=== PATIENT | female | born 1950 | race African-American/Black ===

== ENCOUNTER 2017-06-18 10:10 | Emergency (ER) | payer OTHER ==
[~2017-06-18] VITALS: Ht 160 cm; Wt 53.0 kg
[~2017-06-18 10:10] MED LIST: AMBI10TA PO; ASPI1TAB69 PO; BRIL90TA PO; CARV3.12 PO; FURO40TA PO; LISI10TA3 PO; SIMV20TA PO; WALKER WHEELS/F1 MIS
[2017-06-18 10:14] VITALS: BP 120/77; PULSE 84; RESP 20; TEMP 97.8; O2SAT 97
[2017-06-18] MEDS ORDERED: ATOR40TA16 PO (10:28)
[2017-06-18] MEDS ORDERED: ASPI81CH37 CHEW (10:28)
--- NOTE | 2017-06-18 10:42 | PD ---
HPI . Pedal edema Chief Complaint: Edema Time Seen by Provider: 10:27 Travel History International Travel<30 days: No Contact w/Intl Traveler<30days: No Traveled to known affect area: No History of Present Illness HPI Patient presents with the chief complaint of bilateral pedal edema. Onset was about 2 days ago. Symptoms have been persistent. She reports mild dyspnea on exertion. She denies chest pain. She reports compliance with her diuretic. She does not know the etiology of the increased swelling. PFSH Past Medical History Asthma: No Blood Disorders: No Anxiety: No Depression: No Heart Rhythm Problems: No Cancer: No Cardiovascular Problems: Yes (PACEMAKER AICD 03/2015) High Cholesterol: Yes Chest Pain: Yes Congestive Heart Failure: Yes COPD: No Cerebrovascular Accident: No Diminished Hearing: No Endocrine: No Gastrointestinal Disorders: No Genitourinary: No Headaches: No Hypertension: Yes Immune Disorder: No Implanted Vascular Access Dvce: No Musculoskeletal: No Neurologic: No Psychiatric: No Reproductive: No Respiratory: No Migraines: No Seizures: No Sleep Apnea: No Tetanus Vaccination: Unknown PNEUMOCCOCAL Vaccine (Year): 2 ?: Not Menopausal: Yes Para: 2 Tubal Ligation: Yes Past Surgical History Cardiac Surgery: Yes (PACEMAKER 03/2015) Gynecologic Surgery: Yes Other Surgery: Yes Social History Alcohol Use: Yes (BEER DAILY) Tobacco Use: No Substance Use: No Allergies-Medications (Allergen,Severity, Reaction): Coded Allergies: No Known Allergies (Verified , 06/18/17) Reported Meds & Prescriptions Reported Meds & Active Scripts Active Furosemide 40 Mg Tab 40 Mg PO DAILY Reported Atorvastatin (Atorvastatin Calcium) 40 Mg Tab 40 Mg PO HS Aspirin Low Dose (Aspirin) 81 Mg Chew 81 Mg CHEW DAILY Lisinopril 10 Mg Tab 10 Mg PO DAILY Carvedilol 3.125 Mg Tab 3.125 Mg PO BID Review of Systems Except as stated in HPI: all other systems reviewed are Neg General / Constitutional: No: Fever, Chills Cardiovascular: No: Chest Pain or Discomfort Respiratory: Positive: Shortness of Breath Gastrointestinal: No: Nausea, Vomiting, Diarrhea Musculoskeletal: Positive: Edema, No: Pain Physical Exam Narrative GENERAL: Awake and alert and in no acute distress. SKIN: Warm and dry. HEAD: Atraumatic. Normocephalic. EYES: Pupils equal and round. Extraocular movements are intact. ENT: No nasal bleeding or discharge. Mucous membranes pink and moist. NECK: Trachea midline. Neck is supple. CARDIOVASCULAR: Regular rate and rhythm. Holosystolic murmur. RESPIRATORY: No accessory muscle use. Lungs sound clear with good air movement throughout. GASTROINTESTINAL: Abdomen soft, non-tender, nondistended. MUSCULOSKELETAL: No obvious deformities. 2+ pretibial pitting edema. NEUROLOGICAL: Awake and alert. No obvious cranial nerve deficits. Motor grossly within normal limits. Normal speech. PSYCHIATRIC: Appropriate mood and affect; insight and judgment normal. Data Data Last Documented VS Vital Signs Date Time Temp Pulse Resp B/P Pulse Ox O2 Delivery O2 Flow Rate FiO2 06/18/17 12:08 65 17 134/90 96 Room Air 06/18/17 10:14 97.8 Orders Complete Blood Count With Diff (06/18/17 10:38) Basic Metabolic Panel (Bmp) (06/18/17 10:38) B-Type Natriuretic Peptide (06/18/17 10:38) Iv Access Insert/Monitor (06/18/17 10:38) Electrocardiogram (06/18/17 10:38) Ecg Monitoring (06/18/17 10:38) Oximetry (06/18/17 10:38) Chest, Single Ap (06/18/17 10:38) Sodium Chloride 0.9% Flush (Ns Flush) (06/18/17 10:45) Furosemide Inj (Lasix Inj) (06/18/17 10:45) Labs Laboratory Tests Test 06/18/17 10:50 White Blood Count 4.4 TH/MM3 Red Blood Count 4.41 MIL/MM3 Hemoglobin 12.4 GM/DL Hematocrit 36.8 % Mean Corpuscular Volume 83.6 FL Mean Corpuscular Hemoglobin 28.1 PG Mean Corpuscular Hemoglobin 33.7 % Concent Red Cell Distribution Width 19.0 % Platelet Count 131 TH/MM3 Mean Platelet Volume 11.4 FL Neutrophils (%) (Auto) 75.3 % Lymphocytes (%) (Auto) 15.1 % Monocytes (%) (Auto) 8.2 % Eosinophils (%) (Auto) 0.8 % Basophils (%) (Auto) 0.6 % Neutrophils # (Auto) 3.3 TH/MM3 Lymphocytes # (Auto) 0.7 TH/MM3 Monocytes # (Auto) 0.4 TH/MM3 Eosinophils # (Auto) 0.0 TH/MM3 Basophils # (Auto) 0.0 TH/MM3 CBC Comment DIFF FINAL Differential Comment Sodium Level 133 MEQ/L Potassium Level 4.0 MEQ/L Chloride Level 101 MEQ/L Carbon Dioxide Level 20.2 MEQ/L Anion Gap 12 MEQ/L Blood Urea Nitrogen 16 MG/DL Creatinine 0.90 MG/DL Estimat Glomerular Filtration 76 ML/MIN Rate Random Glucose 104 MG/DL Calcium Level 8.3 MG/DL B-Type Natriuretic Peptide GREATER THAN 5000 PG/ML MDM Medical Decision Making Medical Screen Exam Complete: Yes Emergency Medical Condition: Yes Medical Record Reviewed: Yes (past medical history is significant for hypertension, congestive heart failure with a last known ejection fraction of 25 % on 08/06/15, AICD, chronic renal insufficiency) Interpretation(s) EKG shows a paced rhythm. Differential Diagnosis Differential diagnosis of dyspnea includes but is not limited to congestive heart failure, pneumonia, wheezing, pneumothorax, pulmonary embolism Narrative Course This patient presents with the chief complaint of pedal edema with some mild dyspnea on exertion. She will be evaluated for CHF. She'll be given a dose of Lasix, 40 mg IV. Last Impressions Chest X-Ray 06/18/17 1038 Signed Impressions: Service Date/Time: Sunday, June 18, 2017 10:55 - CONCLUSION: Cardiomegaly. Clear lungs. Fredy Crespo Jr., MD The chest x-ray was independently viewed by me. CBC & BMP Diagram 06/18/17 10:50 BNP>5000. Her BNP has been this elevated before. She is not in pulmonary edema. She will be discharged home. Diagnosis Primary Impression: Leg edema Patient Instructions: General Instructions, Leg Edema (ED) Additional Instructions: See your doctor if the swelling persists. Keep your legs elevated as much as possible. You might consider wearing compressive stockings. Disposition: 01 DISCHARGE HOME Condition: Stable Linda Green MD Jun 18, 2017 10:42
[2017-06-18 10:44] VITALS: O2SAT 98
[2017-06-18] MEDS ORDERED: SODIUM CHLORIDE 0.9% FLUSH 10 ML FLUSH IVF PRN (10:45)
[2017-06-18] MEDS ORDERED: FUROSEMIDE 40 MG/4 ML VIAL IVP ONE (10:45)
--- NOTE | 2017-06-18 11:11 | RADRPT ---
EXAM DATE/TIME: 06/18/2017 10:55 [facility] COMPARISON: CHEST SINGLE AP, October 20, 2016, 17:47. INDICATIONS : Short of breath, swollen lower extremities. MEDICAL HISTORY : Congestive heart failure. Myocardial infarction. SURGICAL HISTORY : Pacemaker. ENCOUNTER: Initial ACUITY: 2 days PAIN SCORE: 0/10 LOCATION: Bilateral chest FINDINGS: A single portable frontal view the chest shows significant cardiomegaly. No pulmonary vascular engorg ement observed. Pacing device overlies the left chest. Lungs are clear. No infiltrates or effusions. Bony structures are unremarkable. CONCLUSION: Cardiomegaly. Clear lungs. Fredy Crespo Jr., MD on June 18, 2017 at 11:09 Board Certified Radiologist. This report was verified electronically.
[2017-06-18 11:28] LABS: AUTOMATED NEUTROPHIL # 3.3 TH/MM3 (1.8-7.7); BASOPHIL % 0.6 % (0.0-2.0); EOSINOPHIL % 0.8 % (0.0-4.0); HEMATOCRIT 36.8 % (35.0-46.0); HEMO FLAGS DIFF FINAL; LYMPH % 15.1 % (9.0-44.0); LYMPHOCYTE # 0.7 TH/MM3 (1.0-4.8); MEAN CELL VOLUME 83.6 FL (80.0-100.0); MEAN CORPUSCULAR HEMOGLOBIN 28.1 PG (27.0-34.0); MEAN CORPUSCULAR HGB CONC 33.7 % (32.0-36.0); MONO % 8.2 % (0.0-8.0); NEUT % 75.3 % (16.0-70.0); PLATELET COUNT 131 TH/MM3 (150-450); RED BLOOD COUNT 4.41 MIL/MM3 (4.00-5.30); WHITE BLOOD COUNT 4.4 TH/MM3 (4.0-11.0)
[2017-06-18 11:30] LABS: BICARBONATE 20.2 MEQ/L (21.0-32.0)
[2017-06-18 12:08] VITALS: BP 134/90; PULSE 65; RESP 17; O2SAT 96
--- NOTE | 2017-06-19 14:01 | EKG ---
Date Performed: 06/18/2017 Time Performed: 10:50:16 PTAGE: 66 years EKG: Normal Sinus rhythm with P wave synchronis ventricular pacing Fusion complexes noted Left atrial abnormality Pacing is n ew compared to the prior tracing ABNORMAL RHYTHM ECG PREVIOUS TRACING : 10/23/2016 11.06 DOCTOR: Levi Solis Interpretating Date/Time 06/19/2017 14:00:51
== END 2017-06-18 13:22 | disposition home or self-care (01) ==
LOC: NEPD 10:10
DX: R60.9 Edema, unspecified (principal); R06.02 Shortness of breath; I50.9 Heart failure, unspecified; I12.9 Hypertensive chronic kidney disease with stage 1 through stage 4 chronic kidney disease, or unspecified chronic kidney disease; N18.9 Chronic kidney disease, unspecified; E78.00 Pure hypercholesterolemia, unspecified; Z79.82 Long term (current) use of aspirin; Z79.899 Other long term (current) drug therapy
CPT/HCPCS: 71010; 80048; 83880; 85025; 93005; 96374; 99285; J1940

== ENCOUNTER 2018-01-17 12:01 | Day surgery (SDC) | payer MEDICARE, MEDICAID ==
[~2018-01-17 12:01] MED LIST changes: -AMBI10TA PO; +AMIO200T PO; -ASPI1TAB69 PO; +ASPI81CH6 CHEW; +ATOR40TA16 PO; -BRIL90TA PO; +BUME1TAB PO; -CARV3.12 PO; -FURO40TA PO; -LISI10TA3 PO; +MILRINJ2; +NITR1SUB3 SL; +SILD20TA11 PO; -SIMV20TA PO; -WALKER WHEELS/F1 MIS
[2018-01-17 12:31] VITALS: BP 116/71; PULSE 90; RESP 20; TEMP 98.5; O2SAT 99
[2018-01-17 13:40] VITALS: BP 118/74; PULSE 82; RESP 20; TEMP 98.4; O2SAT 97
[2018-01-17] MEDS ORDERED: MILRINJ2 (14:15)
--- NOTE | 2018-01-17 14:16 | RADRPT ---
EXAM DATE/TIME: 01/17/2018 14:30 [facility] COMPARISON: No previous studies available for comparison. INDICATIONS : Patient with a existing dual picc line that wont draw back. MEDICAL HISTORY : 1.Chronic systolic heart failure 2. HTN 3. heart failure 4. CAD SURGICAL HISTORY : 1. Pacemaker ENCOUNTER: Initial ACUITY: 2 months PAIN SCORE: 0/10 FLUORO TIME: 0.4 minutes IMAGE SERIES: 1 ACCESS: Right basilic vein DEVICE(S): 1.) 5 [place] dual lumen 30 cm Xcela Power PICC PROCEDURE : 1. Fluoroscopic guidance. 2. Fluoroscopic guided central venous Power PICC line replacement. The risks, benefits and alternatives to the procedure were explained and verbal and written consent w as obtained. The arm was prepped in sterile fashion. Full sterile technique was used, including cap , mask, sterile gloves and gown and a large sterile sheet. Hand hygiene and 2% chlorhexidine prep wa s utilized per protocol for cutaneous antisepsis with appropriate dry time for site. The skin and hernandez bcutaneous tissues were infiltrated with local anesthetic solution. Under direct fluoroscopic guidance the previously placed PICC line was removed over a guidewire and a fresh Power Injectable PICC line was cut to prescribed length and positioned with tip at the cavoatr ial junction level. The line was flushed and secured per protocol. CONCLUSION: 1. Uncomplicated central venous Power PICC line replacement. 2. The PICC line can be used immediately. Fredy Crespo Jr., MD on January 17, 2018 at 14:13 Board Certified Radiologist. This report was verified electronically.
[2018-01-17] MEDS ORDERED: SODIUM CHLORIDE 0.9% FLUSH 10 ML FLUSH IVF PRN ×2 (15:15)
--- NOTE | 2018-01-17 15:17 | PD.RAD ---
Radiology Post PICC Prog Note Pre Procedure Diagnosis: (1) Wound check, abscess Post Procedure Diagnosis: (1) Wound check, abscess Procedure: Right PICC line replacement Procedure Date: Jan 17, 2018 Supervising Radiologist Fredy Crespo JR Proceduralist/Assist: Jing Conn, RT(R)() Device Side: Right Setswana: 5 dual lumen cm: 30 Plan of Activity PICC line can be used immediately Jr. Zak,Fredy Betancourt MD Jan 17, 2018 15:17
[2018-01-18] MEDS ORDERED: SODIUM CHLORIDE 0.9% FLUSH 10 ML FLUSH IVF SCH (09:00)
== END 2018-01-17 14:05 | disposition home or self-care (01) ==
LOC: HROP 12:01 → HRIP 12:05 → HROP 14:05
PROVIDERS: ATTEND Internal Medicine Cardiovascular Disease
DX: Z45.2 Encounter for adjustment and management of vascular access device (principal); I50.22 Chronic systolic (congestive) heart failure; I11.0 Hypertensive heart disease with heart failure; I25.10 Atherosclerotic heart disease of native coronary artery without angina pectoris; Z95.0 Presence of cardiac pacemaker
CPT/HCPCS: 36584; 77001; C1751; J1642

== ENCOUNTER 2018-04-11 15:24 | Inpatient (IN) | payer MEDICARE, MEDICAID ==
[~2018-04-11] VITALS: Ht 152.4 cm; Wt 48.4 kg
[~2018-04-11 15:24] MED LIST changes: -ASPI81CH6 CHEW; +ASPI81CH6 PO; +HEPARIN SODIUM - SQ 10,000 UNITS/ML VIAL SQ SCH
[2018-04-11 15:28] VITALS: BP 122/58; PULSE 84; RESP 20; TEMP 97.7; O2SAT 100
--- NOTE | 2018-04-11 18:08 | PD ---
HPI Chief Complaint: Edema Time Seen by Provider: 17:59 Travel History International Travel<30 days: No Contact w/Intl Traveler<30days: No Traveled to known affect area: No History of Present Illness HPI 67-year-old female with history of significant CAD, with CHF, AICD placement, and a Mildarone infusion via right upper extremity PICC line, presents emergency department for evaluation of bilateral lower extremity edema, worsening shortness of breath over the last week and 1/2-2 weeks. Patient states she feels as though she is filling up with fluid in her abdomen is also distended. Denies any urinary or bowel changes. Denies any fever chills. No cough or congestion. 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 Kilpatrick. She saw his nurse who advised she come to the emergency department. Patient has no other symptoms to report at this time. PFSH Past Medical History Asthma: No Blood Disorders: No Anxiety: No Depression: No Heart Rhythm Problems: No Cancer: No Cardiovascular Problems: Yes High Cholesterol: No Chest Pain: No Congestive Heart Failure: Yes COPD: No Cerebrovascular Accident: No Diminished Hearing: No Endocrine: No Gastrointestinal Disorders: No Genitourinary: No Headaches: No Hypertension: Yes Immune Disorder: No Implanted Vascular Access Dvce: No Musculoskeletal: No Neurologic: No Psychiatric: No Reproductive: No Respiratory: Yes Migraines: No Seizures: No Sleep Apnea: No PNEUMOCCOCAL Vaccine (Year): 2 Menopausal: Yes Para: 2 Tubal Ligation: Yes Past Surgical History Cardiac Surgery: Yes (PACEMAKER 03/2015) Gynecologic Surgery: Yes (HYSTERECTOMY) Other Surgery: Yes Social History Alcohol Use: Yes (BEER DAILY) Tobacco Use: No Substance Use: No Allergies-Medications (Allergen,Severity, Reaction): Coded Allergies: No Known Allergies (Verified Allergy, Unknown, 01/17/18) Reported Meds & Prescriptions Reported Meds & Active Scripts Active Reported Metolazone 2.5 Mg Tab 2.5 Mg PO WEEKLY Milrinone in Dextrose 20 mg/100Ml (Milrinone in Dextrose) 20 Mg/100 Ml (200 Mcg/ Ml) Inj EVERY 48 HOURS Amiodarone (Amiodarone HCl) 200 Mg Tab 200 Mg PO DAILY Sildenafil 20 Mg Tab 10 Tab PO TID Nitroglycerin SL (Nitroglycerin) 0.4 Mg Subl 0.4 Mg SL DIRECTED PRN ONE TABLET UNDER THE TONGUE NEEDED FOR CHEST PAIN, MAY REPEAT EVERY FIVE MINUTES FOR A TOTAL OF 3 DOSES OR CALL 911 IF NO RELIEF Bumetanide 1 Mg Tab 1 Mg PO DAILY Aspirin Low Dose (Aspirin) 81 Mg Chew 81 Mg PO DAILY Review of Systems Except as stated in HPI: all other systems reviewed are Neg Physical Exam Narrative GENERAL: Well-nourished female patient, ambulatory with cane assistance but in no acute distress SKIN: Focused skin assessment warm/dry. HEAD: Atraumatic. Normocephalic. EYES: Pupils equal and round. No scleral icterus. No injection or drainage. ENT: No nasal bleeding or discharge. Mucous membranes pink and moist. NECK: Trachea midline. No JVD. CARDIOVASCULAR: Regular rate and rhythm. 2/6 systolic murmur appreciated. RESPIRATORY: No accessory muscle use. Diminished throughout to auscultation. Breath sounds equal bilaterally. GASTROINTESTINAL: Abdomen soft, nontender, slightly distended. Hepatic and splenic margins not palpable. MUSCULOSKELETAL: No obvious deformities. No clubbing. No cyanosis. 2+ bilateral lower extremity edema. Right upper extremity PICC line in place. Dressing is intact. No erythema, edema, or drainage. NEUROLOGICAL: Awake and alert. No obvious cranial nerve deficits. Motor grossly within normal limits. Normal speech. PSYCHIATRIC: Appropriate mood and affect; insight and judgment normal. Data Data Last Documented VS Vital Signs Date Time Temp Pulse Resp B/P (MAP) Pulse Ox O2 Delivery O2 Flow Rate FiO2 04/11/18 19:26 80 18 130/74 (92) 98 Room Air 04/11/18 15:28 97.7 Orders Orders Complete Blood Count With Diff (04/11/18 15:30) Basic Metabolic Panel (Bmp) (04/11/18 15:30) B-Type Natriuretic Peptide (04/11/18 15:30) Act Partial Throm Time (Ptt) (04/11/18 18:07) Prothrombin Time / Inr (Pt) (04/11/18 18:07) Ckmb (Isoenzyme) Profile (04/11/18 18:) Troponin I (04/11/18 18:) Urinalysis - C+S If Indicated (04/11/18 18:) Iv Access Insert/Monitor (04/11/18 18:07) Ecg Monitoring (04/11/18 18:) Oximetry (04/11/18 18:07) Oxygen Administration (04/11/18 18:07) Sodium Chloride 0.9% Flush (Ns Flush) (04/11/18 18:15) Electrocardiogram (04/11/18 ) Us Abdomen Lower Limited (04/11/18 ) CKMB (04/11/18 18:21) CKMB% (04/11/18 18:21) Chest, Single Ap (04/11/18 ) Labs Laboratory Tests Test 04/11/18 18:21 04/11/18 18:48 White Blood Count 4.7 TH/MM3 Red Blood Count 4.28 MIL/MM3 Hemoglobin 8.6 GM/DL Hematocrit 27.8 % Mean Corpuscular Volume 65.0 FL Mean Corpuscular Hemoglobin 20.2 PG Mean Corpuscular Hemoglobin Concent 31.1 % Red Cell Distribution Width 20.3 % Platelet Count 333 TH/MM3 Mean Platelet Volume 7.8 FL Neutrophils (%) (Auto) 69.2 % Lymphocytes (%) (Auto) 21.7 % Monocytes (%) (Auto) 8.4 % Eosinophils (%) (Auto) 0.0 % Basophils (%) (Auto) 0.7 % Neutrophils # (Auto) 3.3 TH/MM3 Lymphocytes # (Auto) 1.0 TH/MM3 Monocytes # (Auto) 0.4 TH/MM3 Eosinophils # (Auto) 0.0 TH/MM3 Basophils # (Auto) 0.0 TH/MM3 CBC Comment DIFF FINAL Differential Comment Prothrombin Time 12.9 SEC Prothromb Time International Ratio 1.3 RATIO Activated Partial Thromboplast Time 28.0 SEC Blood Urea Nitrogen 33 MG/DL Creatinine 1.58 MG/DL Random Glucose 96 MG/DL Calcium Level 8.7 MG/DL Sodium Level 131 MEQ/L Potassium Level 4.7 MEQ/L Chloride Level 97 MEQ/L Carbon Dioxide Level 23.1 MEQ/L Anion Gap 11 MEQ/L Estimat Glomerular Filtration Rate 40 ML/MIN Total Creatine Kinase 212 U/L Creatine Kinase MB 7.1 NG/ML Creatine Kinase MB % 3.3 % Troponin I 0.02 NG/ML B-Type Natriuretic Peptide 2959 PG/ML Urine Color LIGHT-YELLOW Urine Turbidity CLEAR Urine pH 6.0 Urine Specific [place] 1.007 Urine Protein NEG mg/dL Urine Glucose (UA) NEG mg/dL Urine Ketones NEG mg/dL Urine Occult Blood NEG Urine Nitrite NEG Urine Bilirubin NEG Urine Urobilinogen LESS THAN 2.0 MG/DL Urine Leukocyte Esterase TRACE Urine RBC 1 /hpf Urine WBC LESS THAN 1 /hpf Urine Squamous Epithelial Cells 2 /hpf Microscopic Urinalysis Comment CULT NOT INDICATED MDM Medical Decision Making Medical Screen Exam Complete: Yes Emergency Medical Condition: Yes Medical Record Reviewed: Yes Differential Diagnosis CHF exacerbation versus electrolyte abnormality versus renal failure versus ascites Narrative Course 67-year-old female presents emergency department for evaluation of bilateral lower extremity edema and shortness of breath. Patient appears without distress. Her vital signs are stable. Workup is initiated. Laboratory Tests Test 04/11/18 18:21 04/11/18 18:48 White Blood Count 4.7 TH/MM3 Red Blood Count 4.28 MIL/MM3 Hemoglobin 8.6 GM/DL Hematocrit 27.8 % Mean Corpuscular Volume 65.0 FL Mean Corpuscular Hemoglobin 20.2 PG Mean Corpuscular Hemoglobin Concent 31.1 % Red Cell Distribution Width 20.3 % Platelet Count 333 TH/MM3 Mean Platelet Volume 7.8 FL Neutrophils (%) (Auto) 69.2 % Lymphocytes (%) (Auto) 21.7 % Monocytes (%) (Auto) 8.4 % Eosinophils (%) (Auto) 0.0 % Basophils (%) (Auto) 0.7 % Neutrophils # (Auto) 3.3 TH/MM3 Lymphocytes # (Auto) 1.0 TH/MM3 Monocytes # (Auto) 0.4 TH/MM3 Eosinophils # (Auto) 0.0 TH/MM3 Basophils # (Auto) 0.0 TH/MM3 CBC Comment DIFF FINAL Differential Comment Prothrombin Time 12.9 SEC Prothromb Time International Ratio 1.3 RATIO Activated Partial Thromboplast Time 28.0 SEC Blood Urea Nitrogen 33 MG/DL Creatinine 1.58 MG/DL Random Glucose 96 MG/DL Calcium Level 8.7 MG/DL Sodium Level 131 MEQ/L Potassium Level 4.7 MEQ/L Chloride Level 97 MEQ/L Carbon Dioxide Level 23.1 MEQ/L Anion Gap 11 MEQ/L Estimat Glomerular Filtration Rate 40 ML/MIN Total Creatine Kinase 212 U/L Creatine Kinase MB 7.1 NG/ML Creatine Kinase MB % 3.3 % Troponin I 0.02 NG/ML B-Type Natriuretic Peptide 2959 PG/ML Urine Color LIGHT-YELLOW Urine Turbidity CLEAR Urine pH 6.0 Urine Specific [place] 1.007 Urine Protein NEG mg/dL Urine Glucose (UA) NEG mg/dL Urine Ketones NEG mg/dL Urine Occult Blood NEG Urine Nitrite NEG Urine Bilirubin NEG Urine Urobilinogen LESS THAN 2.0 MG/DL Urine Leukocyte Esterase TRACE Urine RBC 1 /hpf Urine WBC LESS THAN 1 /hpf Urine Squamous Epithelial Cells 2 /hpf Microscopic Urinalysis Comment CULT NOT INDICATED Ultrasound of the abdomen shows mild ascites. Chest x-rays pending. Patient is given a small dose of Lasix here. She will be admitted observation for further evaluation and hopeful resolution/improvement of her symptoms. Diagnosis Primary Impression: Acute exacerbation of congestive heart failure Qualified Codes: I50.9 - Heart failure, unspecified Additional Impressions: Leg edema Orthopnea Admitting Information Admitting Physician Requests: Observation Condition: Stable Julissa Burch April 11, 2018 18:08
[2018-04-11 18:10] VITALS: BP 124/77; PULSE 88; PULSE 89; RESP 18; O2SAT 100; O2SAT 99
[2018-04-11] MEDS ORDERED: SODIUM CHLORIDE 0.9% FLUSH 10 ML FLUSH IVF PRN (18:15)
[2018-04-11] MEDS ORDERED: BUME1TAB PO (18:24)
[2018-04-11] MEDS ORDERED: METO2.5T PO (18:24)
[2018-04-11 19:15] LABS: BILIRUBIN, URINE NEG (NEG); BLOOD, URINE NEG (NEG); GLUCOSE,URINE NEG (NEG); KETONE, URINE NEG (NEG); NITRITE,URINE NEG (NEG); SQUAMOUS EPITHELIAL CELL URINE 2 /hpf (0-5); URINE COLOR LIGHT-YELLOW (YELLW/STRAW); URINE LEUKOCYTE ESTERASE TRACE (NEG)
[2018-04-11 19:20] LABS: BICARBONATE 23.1 MEQ/L (21.0-32.0); CALCIUM 8.7 MG/DL (8.5-10.1); CREATININE 1.58 MG/DL (0.50-1.00)
--- NOTE | 2018-04-11 19:20 | RADRPT ---
EXAM DATE/TIME: 04/11/2018 18:27 [facility] COMPARISON: No previous studies available for comparison. INDICATIONS : Ascities. MEDICAL HISTORY : Myocardial infarction. Hypertension. Glasses. Dyspnea. SURGICAL HISTORY : Pacemaker. Hysterectomy. Tubal ligation. ENCOUNTER: Initial ACUITY: 1 day PAIN SCORE: 2/10 LOCATION: Abdomen. AREA EVALUATED: Abdomen. FINDINGS: Imaging of the abdomen and pelvis was performed to evaluate for ascites for possible paracentesis. T here is a small amount of fluid seen in the peritoneal cavity. This is too small to drain. CONCLUSION: Mild ascites. Froilan Jiang MD on April 11, 2018 at 19:18 Board Certified Radiologist. This report was verified electronically.
[2018-04-11 19:26] VITALS: BP 130/74; PULSE 80; RESP 18; O2SAT 98
[2018-04-11 19:47] LABS: AUTOMATED NEUTROPHIL # 3.3 TH/MM3 (1.8-7.7); BASOPHIL % 0.7 % (0.0-2.0); HEMATOCRIT 27.8 % (35.0-46.0); HEMOGLOBIN 8.6 GM/DL (11.6-15.3); LYMPH % 21.7 % (9.0-44.0); MEAN CORPUSCULAR HEMOGLOBIN 20.2 PG (27.0-34.0); MEAN CORPUSCULAR HGB CONC 31.1 % (32.0-36.0); MEAN PLATELET VOLUME 7.8 FL (7.0-11.0); MONO % 8.4 % (0.0-8.0); MONOCYTE # 0.4 TH/MM3 (0-0.9); NEUT % 69.2 % (16.0-70.0); PLATELET COUNT 333 TH/MM3 (150-450); RED BLOOD COUNT 4.28 MIL/MM3 (4.00-5.30); RED CELL DISTRIBUTION WIDTH 20.3 % (11.6-17.2); WHITE BLOOD COUNT 4.7 TH/MM3 (4.0-11.0)
[2018-04-11 19:54] LABS: INTERNATIONAL NORMALIZED RATIO 1.3 RATIO; PROTHROMBIN TIME - PATIENT 12.9 SEC (9.8-11.6)
[2018-04-11 20:12] LABS: TROPONIN I 0.02 NG/ML (0.02-0.05)
[2018-04-11] MEDS ORDERED: FUROSEMIDE 20 MG/2 ML VIAL IV PUSH ONE (22:00)
--- NOTE | 2018-04-11 22:05 | RADRPT ---
EXAM DATE/TIME: 04/11/2018 20:41 [facility] COMPARISON: CHEST SINGLE AP, June 18, 2017, 10:55. INDICATIONS : Short of breath. MEDICAL HISTORY : Congestive heart failure. A-fib. SURGICAL HISTORY : Pacemaker. ENCOUNTER: Initial ACUITY: >1 year PAIN SCORE: 0/10 LOCATION: Bilateral chest FINDINGS: There is a multilead pacing device seen in place from the left subclavian approach. The heart size is enlarged. Lungs appear grossly clear. There is a PICC line in place from the right arm with the tip overlying the SVC. CONCLUSION: Cardiomegaly. Froilan Jiang MD on April 11, 2018 at 22:02 Board Certified Radiologist. This report was verified electronically.
[2018-04-11 23:33] VITALS: BP 122/71; PULSE 70; RESP 18; O2SAT 98
--- NOTE | 2018-04-11 23:41 | HHI.HP ---
[facility] [place] Primary [place] Physician Froilan Gerardo MD Admission Diagnosis CHF EXACERBATION Diagnoses: Travel History International Travel<30 Days: No Contact w/Intl Traveler <30 Da: No Traveled to Known Affected Are: No History of Present Illness 67-year-old female with past medical history significant for CHF (EF of 20-25% on 10/21/16), HTN and hyperlipidemia presents to the emergency department for the evaluation of lower extremity and abdominal edema. The patient reports that this has been going on for approximately the past 3 weeks. She states that she is compliant with all her medications but her edema persisted despite this. She describes her shortness of breath with exertion that is baseline for her. She has a PICC line in place in the right arm for administration of milrinone. The patient denies any chest pain. She denies abdominal pain. No fever/chills. No nausea/vomiting/diarrhea. No lateralizing signs/symptoms. Review of Systems Except as stated in HPI: all other systems reviewed are Neg Past Family Social History Past Medical History CHF (EF of 20-25% on 10/21/16), HTN and hyperlipidemia Past Surgical History AICD placement Patient reports previous cardiac procedures although she cannot provide details. States she was treated at [facility]. Reported Medications Reported Meds & Active Scripts Active Reported Metolazone 2.5 Mg Tab 2.5 Mg PO WEEKLY Milrinone in Dextrose 20 mg/100Ml (Milrinone in Dextrose) 20 Mg/100 Ml (200 Mcg/ Ml) Inj EVERY 48 HOURS Amiodarone (Amiodarone HCl) 200 Mg Tab 200 Mg PO DAILY Sildenafil 20 Mg Tab 10 Tab PO TID Nitroglycerin SL (Nitroglycerin) 0.4 Mg Subl 0.4 Mg SL DIRECTED PRN ONE TABLET UNDER THE TONGUE NEEDED FOR CHEST PAIN, MAY REPEAT EVERY FIVE MINUTES FOR A TOTAL OF 3 DOSES OR CALL 911 IF NO RELIEF Bumetanide 1 Mg Tab 1 Mg PO DAILY Aspirin Low Dose (Aspirin) 81 Mg Chew 81 Mg PO DAILY Allergies: Coded Allergies: No Known Allergies (Verified Allergy, Unknown, 01/17/18) Family History No family history of CAD or DM Social History Remote history of smoking. Drinks approximately 2 beers per day. Denies illicit drugs. Physical Exam Vital Signs Vital Signs Date Time Temp Pulse Resp B/P (MAP) Pulse Ox O2 Delivery O2 Flow Rate FiO2 04/11/18 23:33 70 18 122/71 (88) 98 Room Air 04/11/18 19:26 80 18 130/74 (92) 98 Room Air 04/11/18 18:10 99 Room Air 04/11/18 18:10 89 18 99 Room Air 04/11/18 18:10 88 18 99 Room Air 04/11/18 18:10 89 18 124/77 (93) 100 Room Air 04/11/18 15:28 97.7 84 20 122/58 (79) 100 Physical Exam GENERAL: -Lao female sitting up in bed SKIN: No rashes, ecchymoses or lesions. Cool and dry. HEAD: Atraumatic. Normocephalic. No temporal or scalp tenderness. EYES: Pupils equal round and reactive. Extraocular motions intact. No scleral icterus. No injection or drainage. ENT: Nose without bleeding, purulent drainage or septal hematoma. Throat without erythema, tonsillar hypertrophy or exudate. Uvula midline. Airway patent. NECK: Trachea midline. No JVD or lymphadenopathy. Supple, nontender, no meningeal signs. CARDIOVASCULAR: Regular rate and rhythm. 3/6 systolic ejection murmur. RESPIRATORY: Clear to auscultation. Breath sounds equal bilaterally. No wheezes , rales, or rhonchi. GASTROINTESTINAL: Abdomen soft, non-tender, positive distention. No hepato- splenomegaly, or palpable masses. No guarding. MUSCULOSKELETAL: 2+ pitting edema NEUROLOGICAL: Awake and alert. Cranial nerves II through XII intact. Motor and sensory grossly within normal limits. Normal speech. Laboratory Laboratory Tests Test 04/11/18 18:21 04/11/18 18:48 White Blood Count 4.7 Red Blood Count 4.28 Hemoglobin 8.6 Hematocrit 27.8 Mean Corpuscular Volume 65.0 Mean Corpuscular Hemoglobin 20.2 Mean Corpuscular Hemoglobin Concent 31.1 Red Cell Distribution Width 20.3 Platelet Count 333 Mean Platelet Volume 7.8 Neutrophils (%) (Auto) 69.2 Lymphocytes (%) (Auto) 21.7 Monocytes (%) (Auto) 8.4 Eosinophils (%) (Auto) 0.0 Basophils (%) (Auto) 0.7 Neutrophils # (Auto) 3.3 Lymphocytes # (Auto) 1.0 Monocytes # (Auto) 0.4 Eosinophils # (Auto) 0.0 Basophils # (Auto) 0.0 CBC Comment DIFF FINAL Differential Comment Prothrombin Time 12.9 Prothromb Time International Ratio 1.3 Activated Partial Thromboplast Time 28.0 Blood Urea Nitrogen 33 Creatinine 1.58 Random Glucose 96 Calcium Level 8.7 Sodium Level 131 Potassium Level 4.7 Chloride Level 97 Carbon Dioxide Level 23.1 Anion Gap 11 Estimat Glomerular Filtration Rate 40 Total Creatine Kinase 212 Creatine Kinase MB 7.1 Creatine Kinase MB % 3.3 Troponin I 0.02 B-Type Natriuretic Peptide 2959 Urine Color LIGHT-YELLOW Urine Turbidity CLEAR Urine pH 6.0 Urine Specific [place] 1.007 Urine Protein NEG Urine Glucose (UA) NEG Urine Ketones NEG Urine Occult Blood NEG Urine Nitrite NEG Urine Bilirubin NEG Urine Urobilinogen LESS THAN 2.0 Urine Leukocyte Esterase TRACE Urine RBC 1 Urine WBC LESS THAN 1 Urine Squamous Epithelial Cells 2 Microscopic Urinalysis Comment CULT NOT INDICATED Result Diagram: 04/11/18 18204/11/181820 Caprini VTE Risk Assessment Caprini VTE Risk Assessment: Mod/High Risk (score >= 2) Caprini Risk Assessment Model Point Value = 1 Point Value = 2 Point Value = 3 Point Value = 5 Age 41-60 Minor surgery BMI > 25 kg/m2 Swollen legs Varicose veins or History of unexplained or recurrent spontaneous Oral contraceptives or hormone replacement Sepsis (< 1 month) Serious lung disease, including pneumonia (< 1 month) Abnormal pulmonary function Acute myocardial infarction Congestive heart failure (< 1 month) History of inflammatory bowel disease Medical patient at bed rest Age 61-74 Arthroscopic surgery Major open surgery (> 45 min) Laparoscopic surgery (> 45 min) Malignancy Confined to bed (> 72 hours) Immobilizing plaster cast Central venous access Age >= 75 History of VTE Family history of VTE Factor V Leiden Prothrombin 51278A Lupus anticoagulant Anticardiolipin antibodies Elevated serum homocysteine Heparin-induced thrombocytopenia Other congenital or acquired thrombophilia Stroke (< 1 month) Elective arthroplasty Hip, pelvis, or leg fracture Acute spinal cord injury (< 1 month) Prophylaxis Regimen Total Risk Factor Score Risk Level Prophylaxis Regimen 0-1 Low Early ambulation 2 Moderate Order ONE of the following: *Sequential Compression Device (SCD) *Heparin 5000 units SQ BID 3-4 Higher Order ONE of the following medications: *Heparin 5000 units SQ TID *Enoxaparin/Lovenox 40 mg SQ daily (WT < 150 kg, CrCl > 30 mL/min) *Enoxaparin/Lovenox 30 mg SQ daily (WT < 150 kg, CrCl > 10-29 mL/min) *Enoxaparin/Lovenox 30 mg SQ BID (WT < 150 kg, CrCl > 30 mL/min) AND/OR *Sequential Compression Device (SCD) 5 or more Highest Order ONE of the following medications: *Heparin 5000 units SQ TID (Preferred with Epidurals) *Enoxaparin/Lovenox 40 mg SQ daily (WT < 150 kg, CrCl > 30 mL/min) *Enoxaparin/Lovenox 30 mg SQ daily (WT < 150 kg, CrCl > 10-29 mL/min) *Enoxaparin/Lovenox 30 mg SQ BID (WT < 150 kg, CrCl > 30 mL/min) AND *Sequential Compression Device (SCD) Assessment and Plan Assessment and Plan Assessment/plan: 1. CHF exacerbation BNP elevated IV Lasix Patient with PICC line in place for IV milrinone infusion, continue 2. Pulmonary arterial hypertension Continue sildenafil Patient with complex cardiac history and poor historian. Medical records requested from [facility]. FEN Heart healthy diet Electrolytes: Monitor and replete as needed Heparin Mercedez Kelly MD April 11, 2018 23:41
[2018-04-11] MEDS ORDERED: ONDANSETRON ODT 4 MG TAB PO PRN (23:45)
[2018-04-11] MEDS ORDERED: LACTULOSE SYRUP 20 GM/30 ML CUP PO PRN (23:45)
[2018-04-11] MEDS ORDERED: SENNOSIDES 8.6 MG TAB PO PRN (23:45)
[2018-04-11] MEDS ORDERED: NALOXONE HCL 0.4 MG/ML AMP IV PUSH PRN (23:45)
[2018-04-11] MEDS ORDERED: SODIUM CHLORIDE 0.9% FLUSH 10 ML FLUSH IV FLUSH PRN (23:45)
[2018-04-11] MEDS ORDERED: ACETAMINOPHEN 325 MG TAB PO PRN (23:45)
[2018-04-11] MEDS ORDERED: BISACODYL 10 MG SUPP RECTAL PRN (23:45)
[2018-04-11] MEDS ORDERED: MAGNESIUM HYDROXIDE SUSP 30 ML CUP PO PRN (23:45)
[2018-04-12] VITALS (7 sets, daily range): BP systolic 109–132; BP diastolic 55–77; PULSE 71–90; RESP 16–18; TEMP 96.3–98; O2SAT 95–100
[2018-04-12 06:14] LABS: HEMATOCRIT 26.6 % (35.0-46.0); HEMOGLOBIN 8.5 GM/DL (11.6-15.3); MEAN CELL VOLUME 64.8 FL (80.0-100.0); MEAN CORPUSCULAR HEMOGLOBIN 20.7 PG (27.0-34.0); MEAN CORPUSCULAR HGB CONC 31.9 % (32.0-36.0); MEAN PLATELET VOLUME 8.5 FL (7.0-11.0); PLATELET COUNT 312 TH/MM3 (150-450); RED BLOOD COUNT 4.11 MIL/MM3 (4.00-5.30); RED CELL DISTRIBUTION WIDTH 20.5 % (11.6-17.2); WHITE BLOOD COUNT 4.7 TH/MM3 (4.0-11.0)
[2018-04-12 06:34] LABS: BICARBONATE 22.8 MEQ/L (21.0-32.0); CALCIUM 8.6 MG/DL (8.5-10.1); CREATININE 1.57 MG/DL (0.50-1.00)
[2018-04-12] MEDS: DOCUSATE SODIUM 50 MG/SENNA 8.6 MG TAB PO SCH ×2 (08:32→21:00)
[2018-04-12] MEDS: FUROSEMIDE 40 MG/4 ML VIAL IV PUSH SCH ×2 (08:32→17:44)
[2018-04-12] MEDS: ASPIRIN 81 MG CHEW TAB PO SCH (08:32)
[2018-04-12] MEDS: SODIUM CHLORIDE 0.9% FLUSH 10 ML FLUSH IV FLUSH SCH ×2 (08:32→21:48)
[2018-04-12] MEDS: AMIODARONE 200 MG TAB PO SCH (08:32)
[2018-04-12 08:35] LABS: BASOPHILS 1 % (0-2); LYMPHOCYTES 18 % (9-44); MONOCYTES 4 % (0-8); NEUTROPHIL # MANUAL DIFF 3.6 TH/MM3 (1.8-7.7); POLYS (SEG NEUTROPHILS) 77 % (16-70)
[2018-04-12 08:36] LABS: OVALOCYTES 1+ (NORMAL); TARGET CELLS 2+ (NORMAL)
[2018-04-12] MEDS ORDERED: SILDENAFIL CITRATE 20 MG TAB PO SCH (09:00)
[2018-04-12] MEDS: SILDENAFIL CITRATE 20 MG TAB PO SCH ×3 (10:16→17:44)
--- NOTE | 2018-04-12 10:25 | HHI.PR ---
Subjective Remarks Follow up for CHF exacerbation. The patient reports continued leg swelling, not much improved overnight. Denies any chest pain. She denies shortness of breath at rest but does have some with exertion which is baseline for her. Denies any cough or congestion. Denies any changes in eating habits or increased fluid or salt intake. She reports compliance with medications. Denies any other medical complaints at this time. Her senior revenue accountant is Dr. Kilpatrick. She states she last visited [facility] back in 2015. Objective Vitals Vital Signs Date Time Temp Pulse Resp B/P (MAP) Pulse Ox O2 Delivery O2 Flow Rate FiO2 04/12/18 08:00 96.8 87 17 132/77 (95) 95 04/12/18 03:45 98.0 88 16 128/65 (86) 100 04/12/18 00:34 97.5 90 16 119/73 (88) 97 04/11/18 23:33 70 18 122/71 (88) 98 Room Air 04/11/18 19:26 80 18 130/74 (92) 98 Room Air 04/11/18 18:10 99 Room Air 04/11/18 18:10 89 18 99 Room Air 04/11/18 18:10 88 18 99 Room Air 04/11/18 18:10 89 18 124/77 (93) 100 Room Air 04/11/18 15:28 97.7 84 20 122/58 (79) 100 I/O 04/11/18 04/11/18 04/11/18 04/12/18 04/12/18 04/12/18 07:00 15:00 23:00 07:00 15:00 23:00 Intake Total 40 ml Balance 40 ml Intake Oral 40 ml # Voids 1 Result Diagram: 04/12/18 0532 04/12/18 0532 Imaging Last Impressions Chest X-Ray 04/11/18 0000 Signed Impressions: Service Date/Time: March 20:41 - CONCLUSION: Cardiomegaly. Froilan Jiang MD Abdomen Ultrasound 04/11/18 0000 Signed Impressions: Service Date/Time: March 18:27 - CONCLUSION: Mild ascites. Froilan Jiang MD Objective Remarks GENERAL: Well-nourished, well-developed pleasant female patient in [facility]. SKIN: Warm and dry. No rash. HEENT: Normocephalic. Atraumatic. Pupils equal and round. Mucous membranes pink and moist. CARDIOVASCULAR: Regular rate and rhythm. No murmur appreciated. RESPIRATORY: No accessory muscle use. Breath sounds diminished at bilateral bases, otherwise clear to auscultation. Breath sounds equal bilaterally. GASTROINTESTINAL: Abdomen soft, non-tender, nondistended. Normoactive bowel sounds x4. MUSCULOSKELETAL: No obvious deformities. 2+ bilateral lower extremity pitting edema. NEUROLOGICAL: Awake and alert. No obvious cranial nerve deficits. Motor grossly within normal limits. Moving all extremities spontaneously. Normal speech. PSYCHIATRIC: Appropriate mood and affect; insight and judgment normal. Medications and IVs Current Medications Medications (Trade) Dose Ordered Sig/Tripp Route Start Time Stop Time Status Last Admin (Cordarone) 200 mg DAILY PO 04/12/18 09:00 04/12/18 08:32 (Aspirin Chew) 81 mg DAILY PO 04/12/18 09:00 04/12/18 08:32 (Lasix Inj) 40 mg BID@ IV PUSH 04/12/18 09:00 04/12/18 08:32 (NS Flush) 2 ml UNSCH PRN IV FLUSH 04/11/18 23:45 (NS Flush) 2 ml BID IV FLUSH 04/12/18 09:00 04/12/18 08:32 (Tylenol) 650 mg Q4H PRN PO 04/11/18 23:45 (Zofran Odt) 4 mg Q6H PRN PO 04/11/18 23:45 (Narcan Inj) 0.4 mg UNSCH PRN IV PUSH 04/11/18 23:45 (Avelina-Colace) 1 tab BID PO 04/12/18 09:00 04/12/18 08:32 (Milk Of Magnesia Liq) 30 ml Q12H PRN PO 04/11/18 23:45 (Senokot) 17.2 mg Q12H PRN PO 04/11/18 23:45 (Dulcolax Supp) 10 mg DAILY PRN RECTAL 04/11/18 23:45 (Lactulose Liq) 30 ml DAILY PRN PO 04/11/18 23:45 (Heparin Inj) 5,000 units Q12H SQ 04/12/18 13:00 (Revatio) 10 mg TID PO 04/12/18 09:00 A/P Assessment and Plan 67-year-old female with history of CHF (EF of 20-25% on 10/21/16), HTN and hyperlipidemia presents to the emergency department for the evaluation of lower extremity and abdominal edema. Acute Systolic CHF Exacerbation: BNP elevated at 2959. CXR reviewed, shows cardiomegaly. Abdominal U/S with mild ascites. -Continue diuresis with IV Lasix 40mg bid -Patient with PICC line in place for IV milrinone infusion, will continue -Monitor Is&Os and daily weights -Consult patient's senior revenue accountant Dr. Kilpatrick -[id number]: Discussed with Dr. Goncalves, recommends metolazone 2.5mg tonight 30min prior to lasix, and consider increasing to metolazone 5mg tomorrow am prior to lasix depending on response today. Recommends daily BNP. Will not be followed by cardiology over the weekend but ok to discharge when acute CHF exacerbation resolved. Pulmonary arterial hypertension: chronic -Continue patient's sildenafil Patient with complex cardiac history and very poor historian. Medical records requested from [facility]. Continue home meds. DVT Prophylaxis: Heparin sq Cheryl Farah PA-C April 12, 2018 10:25 am
--- NOTE | 2018-04-12 12:26 | EKG ---
Date Performed: 04/11/2018 Time Performed: 18:29:01 PTAGE: 67 years EKG: Sinus rhythm with ventricular pacing PREVIOUS TRACING : 06/18/2017 10.50 Since the previous tracing, no significant change not ed DOCTOR: Ravi Rubi Interpretating Date/Time 04/12/2018 12:22:16
[2018-04-12] MEDS: HEPARIN SODIUM - SQ 10,000 UNITS/ML VIAL SQ SCH (13:44)
[2018-04-12] MEDS ORDERED: METOLAZONE 2.5 MG TAB PO ONE (17:30)
--- NOTE | 2018-04-12 17:46 | MB ---
cc: Natalie Goncalves MD, [place] MD DATE: 04/12/2018 HISTORY OF PRESENT ILLNESS: A 67-year-old black female, a patient of Dr. Kilpatrick, with a history of congestive heart failure, ejection fraction 20-25%, biventricular ICD placement, pulmonary hypertension and right bundle branch block, who presented with 3-week history of lower extremity edema and abdominal edema. She has been managed as outpatient with Bumex and metolazone, but has not been improving. She has not had any chest pain. She has minimal dyspnea. She has a PICC line in place for milrinone infusion. She was referred for heart transplant, but due to the lack of transportation, poor social support, frailty and cachexia she was rejected. PAST MEDICAL HISTORY: Positive for chronic systolic congestive heart failure, biventricular ICD Medtronic, pulmonary hypertension, AV fistula, tricuspid regurgitation, left bundle branch block, cardiomyopathy with severe left ventricular systolic dysfunction, malnutrition, hypertension, history of colonoscopy with polypectomy, radial catheterization at in 2015, Medtronic defibrillator in 2014. MEDICATIONS: 1. Milrinone IV, 2. Metolazone 2.5 mg weekly. 2. Amiodarone 200 mg a day. 3. Sildenafil 20 mg t.i.d. 4. Nitroglycerin p.r.n. 5. Bumex 1 mg daily. 6. Aspirin 81 mg a day. ALLERGIES: NONE. SOCIAL HISTORY: The patient has previous history of smoking, but does not smoke at this time. She drinks 2 beers a day. FAMILY HISTORY: Negative for heart disease. REVIEW OF SYSTEMS: Otherwise negative. PHYSICAL EXAMINATION: VITAL SIGNS: Blood pressure 114/73, pulse 87 and regular. HEENT: Negative. NECK: 2+ carotid upstrokes, no bruits. LUNGS: Clear. HEART: Regular with a 2-3/6 systolic murmur and an S3 gallop. ABDOMEN: Soft, no bruits. EXTREMITIES: 2+ pitting edema of the lower extremities and also abdominal distention, 1+ distal pulses. NEUROLOGIC: Grossly nonfocal. The patient is in no acute distress. CARDIOLOGY STUDIES: EKG was reviewed and showed sinus rhythm and biventricular pacing. LABORATORY DATA: Hemoglobin 8.5, potassium 3.8, creatinine 1.58 and 1.57. CK 212, troponin 0.02. BNP 2959. DIAGNOSES: 1. Acute exacerbation of chronic systolic congestive heart failure. 2. Cardiomyopathy with severe left ventricular systolic dysfunction. 3. Pulmonary artery hypertension. 4. Anemia. 5. Status post Medtronic biventricular ICD placement. 6. Arteriovenous fistula. 7. Chronic kidney disease. 8. Hypertension DISPOSITION: Ms. Lafleur will be monitored on telemetry. She will continue her milrinone IV infusion. We will continue diuresis with IV furosemide and also add low-dose metolazone, which can be titrated as needed. She has not had a significant response to diuresis at this time. I recommend to closely monitor her renal function and electrolytes. We will monitor her I's and O's, and daily weights. She will follow up with Dr. Kilpatrick, her primary manager program management, in his office after discharge. MD TAHMINA Hernandez/ , 04:45 PM , 05:44 PM TONI
[2018-04-13] VITALS (8 sets, daily range): BP systolic 100–132; BP diastolic 55–63; PULSE 66–88; RESP 16–17; TEMP 97.8–98.7; O2SAT 96–100
[2018-04-13] MEDS: HEPARIN SODIUM - SQ 10,000 UNITS/ML VIAL SQ SCH ×2 (01:11→18:18)
[2018-04-13 08:52] LABS: BICARBONATE 24.4 MEQ/L (21.0-32.0); CALCIUM 8.5 MG/DL (8.5-10.1); CREATININE 1.42 MG/DL (0.50-1.00)
[2018-04-13] MEDS: METOLAZONE 2.5 MG TAB PO SCH ×2 (09:00→12:26)
[2018-04-13] MEDS: SODIUM CHLORIDE 0.9% FLUSH 10 ML FLUSH IV FLUSH SCH ×2 (09:00→20:50)
--- NOTE | 2018-04-13 10:39 | HHI.PR ---
Subjective Remarks Follow up for CHF exacerbation. The patient reports mild improvement overnight however still with significant lower extremity edema and occasional shortness of breath. She does not feel ready for discharge. Denies chest pain or palpitations. Denies any other medical complaints at this time. Objective Vitals Vital Signs Date Time Temp Pulse Resp B/P (MAP) Pulse Ox O2 Delivery O2 Flow Rate FiO2 04/13/18 08:50 98.7 75 16 100/55 (70) 98 04/13/18 03:42 98.3 74 16 107/63 (78) 99 04/12/18 23:03 98.0 87 16 109/56 (73) 100 04/12/18 19:18 97.5 85 16 114/55 (74) 100 04/12/18 16:00 96.3 71 17 111/61 (78) 100 04/12/18 12:00 96.7 87 18 114/73 (87) 100 I/O 04/12/18 04/12/18 04/12/18 04/13/18 04/13/18 04/13/18 07:00 15:00 23:00 07:00 15:00 23:00 Intake Total 850 ml Output Total 1150 ml 800 ml Balance -300 ml -800 ml Intake Oral 850 ml Output Urine Total 1150 ml 800 ml # Voids 1 1 1 3 # Bowel Movements 1 1 Result Diagram: 04/12/18 0532 04/13/18 0747 Imaging Last Impressions Chest X-Ray 04/11/18 0000 Signed Impressions: Service Date/Time: March 20:41 - CONCLUSION: Cardiomegaly. Froilan Jiang MD Abdomen Ultrasound 04/11/18 0000 Signed Impressions: Service Date/Time: March 18:27 - CONCLUSION: Mild ascites. Froilan Jiang MD Objective Remarks GENERAL: Well-nourished, well-developed pleasant female patient in [facility]. SKIN: Warm and dry. No rash. HEENT: Normocephalic. Atraumatic. Pupils equal and round. Mucous membranes pink and moist. CARDIOVASCULAR: Regular rate and rhythm. 2/6 systolic murmur noted. RESPIRATORY: No accessory muscle use. Breath sounds diminished at bilateral bases, otherwise clear to auscultation. Breath sounds equal bilaterally. GASTROINTESTINAL: Abdomen soft, non-tender, nondistended. Normoactive bowel sounds x4. MUSCULOSKELETAL: No obvious deformities. 2+ bilateral lower extremity pitting edema, mildly improved compared to yesterday NEUROLOGICAL: Awake and alert. No obvious cranial nerve deficits. Motor grossly within normal limits. Moving all extremities spontaneously. Normal speech. PSYCHIATRIC: Appropriate mood and affect; insight and judgment normal. Procedures None. Medications and IVs Current Medications Medications (Trade) Dose Ordered Sig/Tripp Route Start Time Stop Time Status Last Admin (Cordarone) 200 mg DAILY PO 04/12/18 09:00 04/13/18 11:33 (Aspirin Chew) 81 mg DAILY PO 04/12/18 09:00 04/13/18 11:33 (Lasix Inj) 40 mg BID@ IV PUSH 04/12/18 09:00 04/13/18 11:34 (NS Flush) 2 ml UNSCH PRN IV FLUSH 04/11/18 23:45 (NS Flush) 2 ml BID IV FLUSH 04/12/18 09:00 04/13/18 09:00 (Tylenol) 650 mg Q4H PRN PO 04/11/18 23:45 (Zofran Odt) 4 mg Q6H PRN PO 04/11/18 23:45 (Narcan Inj) 0.4 mg UNSCH PRN IV PUSH 04/11/18 23:45 (Avelina-Colace) 1 tab BID PO 04/12/18 09:00 04/13/18 11:33 (Milk Of Magnesia Liq) 30 ml Q12H PRN PO 04/11/18 23:45 (Senokot) 17.2 mg Q12H PRN PO 04/11/18 23:45 (Dulcolax Supp) 10 mg DAILY PRN RECTAL 04/11/18 23:45 (Lactulose Liq) 30 ml DAILY PRN PO 04/11/18 23:45 (Heparin Inj) 5,000 units Q12H SQ 04/12/18 13:00 04/13/18 01:11 (Revatio) 10 mg TID PO 04/12/18 09:00 04/13/18 11:33 (Zaroxolyn) 2.5 mg DAILY PO 04/13/18 08:30 04/13/18 12:26 A/P Assessment and Plan 67-year-old female with history of CHF (EF of 20-25% on 10/21/16), HTN and hyperlipidemia presents to the emergency department for the evaluation of lower extremity and abdominal edema. Acute Systolic CHF Exacerbation: BNP elevated at 2959. CXR reviewed, shows cardiomegaly. Abdominal U/S with mild ascites. -Continue diuresis with IV Lasix 40mg bid -Patient with PICC line in place for IV milrinone infusion, will continue -Monitor Is&Os and daily weights -Consult patient's lockstitch waistline joiner Dr. Kilpatrick -Discussed with Dr. Goncalves, recommends metolazone 2.5mg to be given prior to lasix; Recommends daily BMP/BNP. Will not be followed by cardiology over the weekend but ok to discharge when acute CHF exacerbation resolved. -Patient improving however needs continued diuresis, possible discharge in 1- 2 days Pulmonary arterial hypertension: chronic -Continue patient's sildenafil Patient with complex cardiac history and very poor historian. Medical records requested from [facility]. Continue home meds. DVT Prophylaxis: Heparin sq Discharge Planning Not yet ready for discharge. Continue diuresis. Possible discharge in 1-2 days. Cheryl Farah PA-C April 13, 2018 10:39 am
[2018-04-13] MEDS: DOCUSATE SODIUM 50 MG/SENNA 8.6 MG TAB PO SCH ×2 (11:33→20:49)
[2018-04-13] MEDS: AMIODARONE 200 MG TAB PO SCH (11:33)
[2018-04-13] MEDS: ASPIRIN 81 MG CHEW TAB PO SCH (11:33)
[2018-04-13] MEDS: SILDENAFIL CITRATE 20 MG TAB PO SCH ×3 (11:33→18:18)
[2018-04-13] MEDS: FUROSEMIDE 40 MG/4 ML VIAL IV PUSH SCH ×2 (11:34→19:01)
[2018-04-14] VITALS: BP 107/59; PULSE 76; PULSE 80; RESP 17; TEMP 97.4; O2SAT 99
[2018-04-14] MEDS: HEPARIN SODIUM - SQ 10,000 UNITS/ML VIAL SQ SCH ×2 (00:46→13:34)
[2018-04-14 04:00] VITALS: BP 105/62; PULSE 71; PULSE 80; RESP 17; TEMP 97.3; O2SAT 99
[2018-04-14 08:00] VITALS: BP 104/56; PULSE 74; PULSE 77; RESP 19; TEMP 98; O2SAT 96
[2018-04-14] MEDS: SILDENAFIL CITRATE 20 MG TAB PO SCH ×3 (09:00→18:12)
[2018-04-14] MEDS: DOCUSATE SODIUM 50 MG/SENNA 8.6 MG TAB PO SCH ×2 (09:38→20:07)
[2018-04-14] MEDS: AMIODARONE 200 MG TAB PO SCH (09:38)
[2018-04-14] MEDS: METOLAZONE 2.5 MG TAB PO SCH ×2 (09:38→20:07)
[2018-04-14] MEDS: ASPIRIN 81 MG CHEW TAB PO SCH (09:38)
[2018-04-14] MEDS: SODIUM CHLORIDE 0.9% FLUSH 10 ML FLUSH IV FLUSH SCH ×2 (09:39→20:08)
[2018-04-14] MEDS: FUROSEMIDE 40 MG/4 ML VIAL IV PUSH SCH ×2 (09:39→18:12)
--- NOTE | 2018-04-14 11:29 | HHI.PR ---
Subjective Remarks 67-year-old female with past medical history significant for CHF (EF of 20-25% on 10/21/16), HTN and hyperlipidemia presents to the emergency department for the evaluation of lower extremity and abdominal edema. The patient reports that this has been going on for approximately the past 3 weeks. She states that she is compliant with all her medications but her edema persisted despite this. She describes her shortness of breath with exertion that is baseline for her. She has a PICC line in place in the right arm for administration of milrinone. The patient denies any chest pain. She denies abdominal pain. No fever/chills. No nausea/vomiting/diarrhea. No lateralizing signs/symptoms. 04-12 Follow up for CHF exacerbation. The patient reports continued leg swelling , not much improved overnight. Denies any chest pain. She denies shortness of breath at rest but does have some with exertion which is baseline for her. Denies any cough or congestion. Denies any changes in eating habits or increased fluid or salt intake. She reports compliance with medications. Denies any other medical complaints at this time. Her chemical engineer is Dr. Kilpatrick. She states she last visited [facility] in 2015. 04-13 Follow up for CHF exacerbation. The patient reports mild improvement overnight however still with significant lower extremity edema and occasional shortness of breath. She does not feel ready for discharge. Denies chest pain or palpitations. Denies any other medical complaints at this time. 04-14 SLOW IMPROVEMENT IN LOWER EXTREMITY EDEMA CONTINUE DIURESIS HOPEFULLY HOME IN NEXT 24 TO 48 HOURS Objective Vitals Vital Signs Date Time Temp Pulse Resp B/P (MAP) Pulse Ox O2 Delivery O2 Flow Rate FiO2 04/14/18 08:00 98.0 77 19 104/56 (72) 96 04/14/18 08:00 74 04/14/18 04:00 71 04/14/18 04:00 Room Air 04/14/18 04:00 97.3 80 17 105/62 (76) 99 04/14/18 00:00 76 04/14/18 00:00 97.4 80 17 107/59 (75) 99 04/13/18 23:59 Room Air 04/13/18 20:00 79 04/13/18 20:00 Room Air 04/13/18 19:13 98.0 88 17 132/61 (84) 100 04/13/18 19:05 77 04/13/18 15:21 97.8 73 16 102/56 (71) 96 04/13/18 11:45 98.0 76 16 108/57 (74) 99 I/O 04/13/18 04/13/18 04/13/18 04/14/18 04/14/18 04/14/18 07:00 15:00 23:00 07:00 15:00 23:00 Intake Total 600 ml 120 ml Output Total 800 ml 1000 ml Balance -800 ml -400 ml 120 ml Intake Oral 600 ml 120 ml Output Urine Total 800 ml 1000 ml # Voids 3 2 # Bowel Movements 1 0 Result Diagram: 04/12/18 0532 04/13/18 0747 Other Results Laboratory Tests Test 04/11/18 18:21 04/11/18 18:48 04/12/18 05:32 04/13/18 07:47 White Blood Count 4.7 TH/MM3 4.7 TH/MM3 Red Blood Count 4.28 MIL/MM3 4.11 MIL/MM3 Hemoglobin 8.6 GM/DL 8.5 GM/DL Hematocrit 27.8 % 26.6 % Mean Corpuscular Volume 65.0 FL 64.8 FL Mean Corpuscular Hemoglobin 20.2 PG 20.7 PG Mean Corpuscular Hemoglobin Concent 31.1 % 31.9 % Red Cell Distribution Width 20.3 % 20.5 % Platelet Count 333 TH/MM3 312 TH/MM3 Mean Platelet Volume 7.8 FL 8.5 FL Neutrophils (%) (Auto) 69.2 % Lymphocytes (%) (Auto) 21.7 % Monocytes (%) (Auto) 8.4 % Eosinophils (%) (Auto) 0.0 % Basophils (%) (Auto) 0.7 % Neutrophils # (Auto) 3.3 TH/MM3 Lymphocytes # (Auto) 1.0 TH/MM3 Monocytes # (Auto) 0.4 TH/MM3 Eosinophils # (Auto) 0.0 TH/MM3 Basophils # (Auto) 0.0 TH/MM3 CBC Comment DIFF FINAL AUTO DIFF Differential Comment FINAL DIFF MANUAL Prothrombin Time 12.9 SEC Prothromb Time International Ratio 1.3 RATIO Activated Partial Thromboplast Time 28.0 SEC Blood Urea Nitrogen 33 MG/DL 34 MG/DL 37 MG/DL Creatinine 1.58 MG/DL 1.57 MG/DL 1.42 MG/DL Random Glucose 96 MG/DL 84 MG/DL 82 MG/DL Calcium Level 8.7 MG/DL 8.6 MG/DL 8.5 MG/DL Sodium Level 131 MEQ/L 133 MEQ/L 136 MEQ/L Potassium Level 4.7 MEQ/L 3.8 MEQ/L 3.6 MEQ/L Chloride Level 97 MEQ/L 97 MEQ/L 98 MEQ/L Carbon Dioxide Level 23.1 MEQ/L 22.8 MEQ/L 24.4 MEQ/L Anion Gap 11 MEQ/L 13 MEQ/L 14 MEQ/L Estimat Glomerular Filtration Rate 40 ML/MIN 40 ML/MIN 45 ML/MIN Total Creatine Kinase 212 U/L Creatine Kinase MB 7.1 NG/ML Creatine Kinase MB % 3.3 % Troponin I 0.02 NG/ML B-Type Natriuretic Peptide 2959 PG/ML 2997 PG/ML Urine Color LIGHT-YELLOW Urine Turbidity CLEAR Urine pH 6.0 Urine Specific [place] 1.007 Urine Protein NEG mg/dL Urine Glucose (UA) NEG mg/dL Urine Ketones NEG mg/dL Urine Occult Blood NEG Urine Nitrite NEG Urine Bilirubin NEG Urine Urobilinogen LESS THAN 2.0 MG/DL Urine Leukocyte Esterase TRACE Urine RBC 1 /hpf Urine WBC LESS THAN 1 /hpf Urine Squamous Epithelial Cells 2 /hpf Microscopic Urinalysis Comment CULT NOT INDICATED Differential Total Cells Counted 100 Neutrophils % (Manual) 77 % Lymphocytes % 18 % Monocytes % 4 % Basophils % 1 % Neutrophils # (Manual) 3.6 TH/MM3 Platelet Estimate NORMAL Platelet Morphology Comment NORMAL Target Cells 2+ Ovalocytes 1+ Imaging Last Impressions Chest X-Ray 04/11/18 0000 Signed Impressions: Service Date/Time: March 20:41 - CONCLUSION: Cardiomegaly. Froilan Jiang MD Abdomen Ultrasound 04/11/18 0000 Signed Impressions: Service Date/Time: March 18:27 - CONCLUSION: Mild ascites. Froilan Jiang MD Objective Remarks GENERAL: Awake alert and oriented 3 talkative and cooperative very thin appearing female SKIN: Warm and dry. HEAD: Atraumatic. Normocephalic. EYES: Pupils equal and round. No scleral icterus. No injection or drainage. Extraocular muscles intact ENT: No nasal bleeding or discharge. Mucous membranes pink and moist. Tongue is midline NECK: Trachea midline. No JVD. CARDIOVASCULAR: Regular rate and rhythm. S1-S2 no S3 or S4 RESPIRATORY: No accessory muscle use. Clear to auscultation. Breath sounds equal bilaterally. GASTROINTESTINAL: Abdomen soft, non-tender, nondistended. Hepatic and splenic margins not palpable. MUSCULOSKELETAL: Extremities without clubbing, cyanosis, or edema. No obvious deformities. +2 lower extremity edema NEUROLOGICAL: Awake and alert. No obvious cranial nerve deficits. Motor grossly within normal limits. Five out of 5 muscle strength in the arms and legs. Normal speech. PSYCHIATRIC: Appropriate mood and affect; insight and judgment normal. Procedures None. Medications and IVs Current Medications Sodium Chloride (NS Flush) 2 ml UNSCH PRN IVF FLUSH AFTER USING IV ACCESS; Start 04/11/18 at 18:15; Stop 04/11/18 at 23:48; Status DC Furosemide (Lasix Inj) 20 mg ONCE ONCE IV PUSH Last administered on 04/11/18at 22:06; Start 04/11/18 at 22:00; Stop 04/11/18 at 22:01; Status DC Amiodarone HCl (Cordarone) 200 mg DAILY PO Last administered on 04/14/18 09:38 ; Start 04/12/18 at 09:00 Aspirin (Aspirin Chew) 81 mg DAILY PO Last administered on 04/14/18 09:38; Start 04/12/18 at 09:00 Sildenafil Citrate (Revatio) 200 mg TID PO ; Start 04/12/18 at 09:00; Stop 04/12 at 09:00; Status DC Furosemide (Lasix Inj) 40 mg BID@18 IV PUSH Last administered on 04/14/18at 09:39; Start 04/12/18 at 09:00 Sodium Chloride (NS Flush) 2 ml UNSCH PRN IV FLUSH FLUSH AFTER USING IV ACCESS ; Start 04/11/18 at 23:45 Sodium Chloride (NS Flush) 2 ml BID IV FLUSH Last administered on 04/14/18at 09: 39; Start 04/12/18 at 09:00 Acetaminophen (Tylenol) 650 mg Q4H PRN PO TEMP > 100.4; Start 04/11/18 at 23:45 Ondansetron HCl (Zofran Odt) 4 mg Q6H PRN PO NAUSEA OR VOMITING; Start at 23:45 Heparin Sodium (Porcine) (Heparin Inj) 5,000 units Q12H SQ Last administered on 04/12/18at 00:55; Start 04/11/18 at 00:00; Stop 04/12/18 at 06:05; Status DC Naloxone HCl (Narcan Inj) 0.4 mg UNSCH PRN IV PUSH SEE LABEL COMMENTS; Start at 23:45 Senna/Docusate Sodium (Avelina-Colace) 1 tab BID PO Last administered on at 09:38; Start 04/12/18 at 09:00 Magnesium Hydroxide (Milk Of Magnesia Liq) 30 ml Q12H PRN PO Mild constipation ; Start 04/11/18 at 23:45 Sennosides (Senokot) 17.2 mg Q12H PRN PO Moderate constipation; Start 04/11/18 at 23:45 Bisacodyl (Dulcolax Supp) 10 mg DAILY PRN RECTAL SEVERE CONSITIPATION; Start at 23:45 Lactulose (Lactulose Liq) 30 ml DAILY PRN PO SEVERE CONSITIPATION; Start at 23:45 Heparin Sodium (Porcine) (Heparin Inj) 5,000 units Q12H SQ Last administered on 04/14/18at 00:46; Start 04/12/18 at 13:00 Sildenafil Citrate (Revatio) 10 mg TID PO Last administered on 04/13/18at 18:18 ; Start 04/12/18 at 09:00 Metolazone (Zaroxolyn) 2.5 mg ONCE ONCE PO Last administered on 04/12/18at 17: 44; Start 04/12/18 at 17:30; Stop 04/12/18 at 17:31; Status DC Metolazone (Zaroxolyn) 2.5 mg DAILY PO Last administered on 04/14/18at 09:38; Start 04/13/18 at 08:30 A/P Assessment and Plan 67-year-old female with history of CHF (EF of 20-25% on 10/21/16), HTN and hyperlipidemia presents to the emergency department for the evaluation of lower extremity and abdominal edema. Acute Systolic CHF Exacerbation: BNP elevated at 2959. CXR reviewed, shows cardiomegaly. Abdominal U/S with mild ascites. -Continue diuresis with IV Lasix 40mg bid -Patient with PICC line in place for IV milrinone infusion, will continue -Monitor Is&Os and daily weights -Consult patient's chemical engineer Dr. Kilpatrick -Discussed with Dr. Goncalves, recommends metolazone 2.5mg to be given prior to lasix; Recommends daily BMP/BNP. Will not be followed by cardiology over the weekend but ok to discharge when acute CHF exacerbation resolved. -Patient improving however needs continued diuresis, possible discharge in 1- 2 days Pulmonary arterial hypertension: chronic -Continue patient's sildenafil Patient with complex cardiac history and very poor historian. Medical records requested from [facility]. Continue home meds. DVT Prophylaxis: Heparin sq Discharge Planning Pending improvement of diuresis Jim Livingston DO April 14, 2018 11:29
[2018-04-14 12:00] VITALS: BP 113/62; PULSE 78; PULSE 79; RESP 20; TEMP 98.2; O2SAT 98
[2018-04-14 16:00] VITALS: BP 101/58; PULSE 72; PULSE 76; RESP 19; TEMP 97.8; O2SAT 99
[2018-04-14 20:00] VITALS: BP 123/60; PULSE 77; PULSE 79; RESP 18; TEMP 97.8; O2SAT 100
[2018-04-14] MEDS ORDERED: diphenhydrAMINE HCL 25 MG CAP PO ONE (21:15)
[2018-04-15] VITALS (10 sets, daily range): BP systolic 93–117; BP diastolic 50–61; PULSE 69–85; RESP 17–18; TEMP 97.9–98.3; O2SAT 97–100
[2018-04-15] MEDS: HEPARIN SODIUM - SQ 10,000 UNITS/ML VIAL SQ SCH ×2 (00:43→12:42)
[2018-04-15 05:28] LABS: HEMATOCRIT 24.3 % (35.0-46.0); HEMOGLOBIN 7.7 GM/DL (11.6-15.3); MEAN CELL VOLUME 63.7 FL (80.0-100.0); MEAN CORPUSCULAR HEMOGLOBIN 20.3 PG (27.0-34.0); MEAN CORPUSCULAR HGB CONC 31.9 % (32.0-36.0); MEAN PLATELET VOLUME 8.7 FL (7.0-11.0); PLATELET COUNT 289 TH/MM3 (150-450); RED BLOOD COUNT 3.81 MIL/MM3 (4.00-5.30); RED CELL DISTRIBUTION WIDTH 20.3 % (11.6-17.2); WHITE BLOOD COUNT 3.9 TH/MM3 (4.0-11.0)
[2018-04-15 05:50] LABS: ALBUMIN 2.9 GM/DL (3.4-5.0); AST (GOT) 47 U/L (15-37); BICARBONATE 28.4 MEQ/L (21.0-32.0); BLOOD UREA NITROGEN 37 MG/DL (7-18); CALCIUM 8.5 MG/DL (8.5-10.1); CHLORIDE 95 MEQ/L (98-107); CREATININE 1.34 MG/DL (0.50-1.00); GLOMERULAR FILTRATION RATE 48 ML/MIN (>89); GLUCOSE,RANDOM 75 MG/DL (74-106); SODIUM (NA) 135 MEQ/L (136-145)
[2018-04-15 06:01] LABS: ALKALINE PHOSPHATASE 174 U/L (45-117); ALT (GPT) 30 U/L (10-53); FREE T4 1.96 NG/DL (0.76-1.46); PHOSPHORUS 3.4 MG/DL (2.5-4.9); TOTAL BILIRUBIN ADULT 1.2 MG/DL (0.2-1.0); TOTAL PROTEIN 7.7 GM/DL (6.4-8.2)
[2018-04-15 08:04] LABS: CORRECTED NUCLEATED RBC 2 /100 WBC (0-0); LYMPHOCYTES 14 % (9-44); MONOCYTES 6 % (0-8); NEUTROPHIL # MANUAL DIFF 3.1 TH/MM3 (1.8-7.7); NUCLEATED RED BLOOD CELL 2 (0-0); POLYS (SEG NEUTROPHILS) 80 % (16-70)
[2018-04-15 08:05] LABS: TARGET CELLS 2+ (NORMAL)
[2018-04-15 08:14] LABS: ACANTHOCYTES OCC (NORMAL); HELMET CELLS OCC (NORMAL); OVALOCYTES 1+ (NORMAL)
[2018-04-15] MEDS: AMIODARONE 200 MG TAB PO SCH (08:40)
[2018-04-15] MEDS: METOLAZONE 2.5 MG TAB PO SCH ×2 (08:41→20:58)
[2018-04-15] MEDS: SILDENAFIL CITRATE 20 MG TAB PO SCH ×3 (08:41→18:06)
[2018-04-15] MEDS: SODIUM CHLORIDE 0.9% FLUSH 10 ML FLUSH IV FLUSH SCH ×2 (08:41→20:59)
[2018-04-15] MEDS: ASPIRIN 81 MG CHEW TAB PO SCH (08:41)
[2018-04-15] MEDS: FUROSEMIDE 40 MG/4 ML VIAL IV PUSH SCH ×2 (08:41→18:06)
[2018-04-15] MEDS: DOCUSATE SODIUM 50 MG/SENNA 8.6 MG TAB PO SCH ×2 (08:42→20:58)
--- NOTE | 2018-04-15 09:31 | HHI.PR ---
Subjective Remarks in no acute distress. denies chest pain or sob. has some pain to both legs but she says that ' swelling is much better'. d/w the RN. Objective Vitals Vital Signs Date Time Temp Pulse Resp B/P (MAP) Pulse Ox O2 Delivery O2 Flow Rate FiO2 04/15/18 08:00 98.3 72 18 103/55 (71) 97 04/15/18 04:00 97.9 75 17 97/54 (68) 97 04/15/18 00:00 69 04/15/18 00:00 Room Air 04/14/18 20:00 Room Air 04/14/18 20:00 77 04/14/18 20:00 97.8 79 18 123/60 (81) 100 04/14/18 16:00 97.8 76 19 101/58 (72) 99 04/14/18 16:00 72 04/14/18 16:00 Room Air 04/14/18 12:00 Room Air 04/14/18 12:00 78 04/14/18 12:00 98.2 79 20 113/62 (79) 98 I/O 04/14/18 04/14/18 04/14/18 04/15/18 04/15/18 04/15/18 07:00 15:00 23:00 07:00 15:00 23:00 Intake Total 120 ml 800 ml 120 ml Balance 120 ml 800 ml 120 ml Intake Oral 120 ml 800 ml 120 ml # Voids 2 3 5 # Bowel Movements 0 2 0 Result Diagram: 04/15/18 0428 04/15/18 0428 Imaging Last Impressions Chest X-Ray 04/11/18 0000 Signed Impressions: Service Date/Time: March 20:41 - CONCLUSION: Cardiomegaly. Froilan Jiang MD Abdomen Ultrasound 04/11/18 0000 Signed Impressions: Service Date/Time: March 18:27 - CONCLUSION: Mild ascites. Froilan Jiang MD Objective Remarks GENERAL: This is a well-nourished, well-developed patient, in no apparent distress. CARDIOVASCULAR: Regular rate and regular rhythm without murmurs, gallops, or rubs. RESPIRATORY: Clear to auscultation. Breath sounds equal bilaterally. No wheezes , rales, or rhonchi. GASTROINTESTINAL: Abdomen soft, non-tender, nondistended. Normal, active bowel sounds MUSCULOSKELETAL: Extremities with mild bilateral pedal edema. NEURO: Alert & Oriented x4 to person, place, time, situation. Moves all ext x4 Procedures None. Medications and IVs Inpatient Medications Acetaminophen (Tylenol) 650 mg Q4H PRN PO TEMP > 100.4; Start 04/11/18 at 23:45 Amiodarone HCl (Cordarone) 200 mg DAILY PO Last administered on 04/15/18at 08:40 ; Start 04/12/18 at 09:00 Aspirin (Aspirin Chew) 81 mg DAILY PO Last administered on 04/15/18at 08:41; Start 04/12/18 at 09:00 Bisacodyl (Dulcolax Supp) 10 mg DAILY PRN RECTAL SEVERE CONSITIPATION; Start at 23:45 Diphenhydramine HCl (Benadryl) 25 mg ONCE ONCE PO Last administered on at 21:26; Start 04/14/18 at 21:15; Stop 04/14/18 at 21:19; Status DC Furosemide (Lasix Inj) 40 mg BID@,18 IV PUSH Last administered on 04/15/18at 08:41; Start 04/12/18 at 09:00 Heparin Sodium (Porcine) (Heparin Inj) 5,000 units Q12H SQ Last administered on 04/15/18at 00:43; Start 04/12/18 at 13:00 Lactulose (Lactulose Liq) 30 ml DAILY PRN PO SEVERE CONSITIPATION; Start at 23:45 Magnesium Hydroxide (Milk Of Magnesia Liq) 30 ml Q12H PRN PO Mild constipation ; Start 04/11/18 at 23:45 Metolazone (Zaroxolyn) 2.5 mg BID PO Last administered on 04/15/18at 08:41; Start 04/14/18 at 21:00 Naloxone HCl (Narcan Inj) 0.4 mg UNSCH PRN IV PUSH SEE LABEL COMMENTS; Start at 23:45 Ondansetron HCl (Zofran Odt) 4 mg Q6H PRN PO NAUSEA OR VOMITING; Start at 23:45 Senna/Docusate Sodium (Avelina-Colace) 1 tab BID PO Last administered on at 08:42; Start 04/12/18 at 09:00 Sennosides (Senokot) 17.2 mg Q12H PRN PO Moderate constipation; Start 04/11/18 at 23:45 Sildenafil Citrate (Revatio) 10 mg TID PO Last administered on 04/15/18at 08:41 ; Start 04/12/18 at 09:00 Sodium Chloride (NS Flush) 2 ml BID IV FLUSH Last administered on 04/15/18at 08: 41; Start 04/12/18 at 09:00 A/P Assessment and Plan A/P Acute Systolic CHF Exacerbation: BNP elevated at 2959. CXR reviewed, shows cardiomegaly. Abdominal U/S with mild ascites. -Continue diuresis with IV Lasix 40mg bid- Metolazone was added. -Patient with PICC line in place for IV milrinone infusion, will continue -Monitor Is&Os and daily weights -Consult patient's regional account manager Dr. Kilpatrick Anemia- H/H trending down. - check the stool for blood -check iron panel - continue to monitor H/H Pulmonary arterial hypertension: chronic -Continue patient's sildenafil Patient with complex cardiac history and very poor historian. Medical records requested from [facility]. Continue home meds. DVT Prophylaxis: Heparin sq Discharge Planning dc home tomorrow if H/H stable and clinically improves with diuretics. Piter Winters MD April 15, 2018 09:31
[2018-04-15 10:55] LABS: % SATURATION IRON PROFILE 3.8 % (20-50); IRON (FE) 20 MCG/DL (50-170); TOTAL IRON BINDING CAPACITY 529 MCG/DL (250-450)
[2018-04-15 10:57] LABS: FERRITIN 19 NG/ML (8-252)
--- NOTE | 2018-04-15 11:41 | PD.CARD.PN ---
Subjective Subjective Remarks The patient is sitting on edge ogf bed this AM, reports feeling much better. Breathing and edema has improved. Still not back to baseline. (Shadeed,Sammie BUCKNER) Objective Medications Current Medications Medications (Trade) Dose Ordered Sig/Tripp Route Start Time Stop Time Status Last Admin (Cordarone) 200 mg DAILY PO 04/12/18 09:00 04/15/18 08:40 (Aspirin Chew) 81 mg DAILY PO 04/12/18 09:00 04/15/18 08:41 (Lasix Inj) 40 mg BID@18 IV PUSH 04/12/18 09:00 04/15/18 08:41 (NS Flush) 2 ml UNSCH PRN IV FLUSH 04/11/18 23:45 (NS Flush) 2 ml BID IV FLUSH 04/12/18 09:00 04/15/18 08:41 (Tylenol) 650 mg Q4H PRN PO 04/11/18 23:45 (Zofran Odt) 4 mg Q6H PRN PO 04/11/18 23:45 (Narcan Inj) 0.4 mg UNSCH PRN IV PUSH 04/11/18 23:45 (Avelina-Colace) 1 tab BID PO 04/12/18 09:00 04/15/18 08:42 (Milk Of Magnesia Liq) 30 ml Q12H PRN PO 04/11/18 23:45 (Senokot) 17.2 mg Q12H PRN PO 04/11/18 23:45 (Dulcolax Supp) 10 mg DAILY PRN RECTAL 04/11/18 23:45 (Lactulose Liq) 30 ml DAILY PRN PO 04/11/18 23:45 (Heparin Inj) 5,000 units Q12H SQ 04/12/18 13:00 04/15/18 00:43 (Revatio) 10 mg TID PO 04/12/18 09:00 04/15/18 08:41 (Zaroxolyn) 2.5 mg BID PO 04/14/18 21:00 04/15/18 08:41 (KCl) 30 meq DAILY PO 04/15/18 09:30 Vital Signs / I&O Vital Signs Date Time Temp Pulse Resp B/P (MAP) Pulse Ox O2 Delivery O2 Flow Rate FiO2 5/21/18 08:00 Room Air 04/15/18 08:00 98.3 72 18 103/55 (71) 97 04/15/18 04:00 97.9 75 17 97/54 (68) 97 04/15/18 00:00 69 04/15/18 00:00 Room Air 04/14/18 20:00 Room Air 04/14/18 20:00 77 04/14/18 20:00 97.8 79 18 123/60 (81) 100 04/14/18 16:00 97.8 76 19 101/58 (72) 99 04/14/18 16:00 72 04/14/18 16:00 Room Air 04/14/18 12:00 Room Air 04/14/18 12:00 78 04/14/18 12:00 98.2 79 20 113/62 (79) 98 I/O 04/14/18 04/14/18 04/14/18 04/15/18 04/15/18 04/15/18 07:00 15:00 23:00 07:00 15:00 23:00 Intake Total 120 ml 800 ml 120 ml Balance 120 ml 800 ml 120 ml Intake Oral 120 ml 800 ml 120 ml # Voids 2 3 5 # Bowel Movements 0 2 0 Physical Exam GENERAL: Thin, ill appearing female SKIN: Warm and dry. HEAD: Atraumatic. Normocephalic. EYES: Pupils equal and round. No scleral icterus. No injection or drainage. ENT: No nasal bleeding or discharge. Mucous membranes pink and moist. NECK: Trachea midline. No JVD. CARDIOVASCULAR: Regular rate and rhythm. RESPIRATORY: No accessory muscle use. Clear to auscultation. Breath sounds equal bilaterally. GASTROINTESTINAL: Abdomen soft, non-tender, nondistended. Hepatic and splenic margins not palpable. MUSCULOSKELETAL: Extremities without clubbing, cyanosis, or edema. No obvious deformities. NEUROLOGICAL: Awake and alert. No obvious cranial nerve deficits. Motor grossly within normal limits. Five out of 5 muscle strength in the arms and legs. Normal speech. PSYCHIATRIC: Appropriate mood and affect; insight and judgment normal. Laboratory Laboratory Tests Test 04/15/18 04:28 White Blood Count 3.9 TH/MM3 Red Blood Count 3.81 MIL/MM3 Hemoglobin 7.7 GM/DL Hematocrit 24.3 % Mean Corpuscular Volume 63.7 FL Mean Corpuscular Hemoglobin 20.3 PG Mean Corpuscular Hemoglobin Concent 31.9 % Red Cell Distribution Width 20.3 % Platelet Count 289 TH/MM3 Mean Platelet Volume 8.7 FL CBC Comment AUTO DIFF Differential Total Cells Counted 100 Neutrophils % (Manual) 80 % Lymphocytes % 14 % Monocytes % 6 % Neutrophils # (Manual) 3.1 TH/MM3 Nucleated Red Blood Cells 2 /100 WBC Differential Comment FINAL DIFF MANUAL Platelet Estimate NORMAL Platelet Morphology Comment NORMAL Target Cells 2+ Ovalocytes 1+ Helmet Cells OCC Acanthocytes OCC Blood Urea Nitrogen 37 MG/DL Creatinine 1.34 MG/DL Random Glucose 75 MG/DL Total Protein 7.7 GM/DL Albumin 2.9 GM/DL Calcium Level 8.5 MG/DL Phosphorus Level 3.4 MG/DL Magnesium Level 2.0 MG/DL Alkaline Phosphatase 174 U/L Aspartate Amino Transf (AST/SGOT) 47 U/L Alanine Aminotransferase (ALT/SGPT) 30 U/L Total Bilirubin 1.2 MG/DL Sodium Level 135 MEQ/L Potassium Level 3.2 MEQ/L Chloride Level 95 MEQ/L Carbon Dioxide Level 28.4 MEQ/L Anion Gap 12 MEQ/L Estimat Glomerular Filtration Rate 48 ML/MIN Iron Level 20 MCG/DL Total Iron Binding Capacity 529 MCG/DL Percent Iron Saturation 3.8 % Ferritin 19 NG/ML B-Type Natriuretic Peptide 2977 PG/ML Free Thyroxine 1.96 NG/DL Thyroid Stimulating Hormone 3rd Gen 3.080 uIU/ML (Sammie Harris Christina [facility]) Assessment and Plan Assessment and Plan CHF Ascites Pulmonary HTN Anemia CKD High output heart failure. 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 Will continue with careful diuresis and monitoring of renal function. Continue on Sildenafil Microcytic anemia. Will consult Dr. Susan Parrish. Will continue to monitor renal function Poor prognosis, pt will continue on milrinone drip and sildenafil Pt was seen and evaluated by Dr. Kilpatrick who completed face to face encounter and physical exam, and participated in care, management and decision making. (Sammie Harris Christina [facility]) Assessment and Plan The exam, history, and the medical decision-making described in the above note were completed with the assistance of the mid-level provider. I reviewed and agree with the findings presented. I attest that I had a [id number] encounter with the patient on the same day, and personally performed and documented my assessment and findings in the medical record. Doing better post diuresis (Nic Kilpatrick MD) StevenFebruary Christina BUCKNER April 15, 2018 11:41 Nic Kilpatrick MD April 15, 2018 14:07
[2018-04-15] MEDS: POTASSIUM CHLORIDE 10 MEQ CONTROLLED RELEASE TAB PO SCH (12:42)
--- NOTE | 2018-04-15 16:35 | MB ---
cc: Susan Parrish MD DATE: 04/15/2018 CHIEF COMPLAINT: 1. Iron deficiency anemia. 2. Congestive heart failure exacerbation. HISTORY OF PRESENT ILLNESS: Ms. Lafleur is a 67-year-old lady with a history of congestive heart failure with an ejection fraction of 20-25%, hypertension, hyperlipidemia and anemia, who presented to the emergency department on 04/11/2018 for further evaluation and management of lower extremity edema and increased abdominal girth. Her symptoms have been present for approximately the past 3 weeks and had been worsening over the several days leading up to admission, she was compliant with her medications. However, her edema persisted despite this compliance. She has baseline shortness of breath at exertion and she is currently on IV milrinone in the outpatient setting. PAST MEDICAL HISTORY: 1. Congestive heart failure. 2. Hypertension. 3. Hyperlipidemia. PHYSICIAN: She follows in the outpatient setting with Dr. Kilpatrick of cardiology. PAST SURGICAL HISTORY: AICD placement and multiple cardiac procedures. HOME MEDICATIONS: 1. Metolazone. 2. Milrinone 3. Amiodarone. 4. Sildenafil. 5. Nitroglycerin. 6. Bumex. 7. Aspirin. ALLERGIES: NO KNOWN DRUG ALLERGIES. LABORATORY STUDIES: From admission with white blood cell count of 3.9, hemoglobin 7.7, platelet count of 289,000. Target cells, ovalocytes acanthocytes present on differential. Creatinine is elevated at 1.34. Iron level is 20. Total iron binding capacity is 529, percent saturation is 3.8 and ferritin level is 19. Total bilirubin is slightly elevated at 1.2. AST is slightly elevated at 47, ALT is 30, alkaline phosphatase is 174. BNP is elevated. Albumin is down at 2.9. Free T4 is slightly elevated at 1.96. However, TSH is within normal limits at 3.08. IMAGING STUDIES: Abdominal ultrasound revealed mild ascites. Chest x-ray revealed cardiomegaly. PHYSICAL EXAMINATION: VITAL SIGNS: Temperature 98.1, pulse 73, respiratory rate 18, blood pressure 93/50, pulse oximetry is 100 percent on room air. GENERAL: Thin, chronically ill-appearing lady in no distress, sitting comfortably at bedside. Significant other is in the room. HEAD: Normocephalic, atraumatic. EYES: EOMI, PERRLA. No scleral icterus. RESPIRATORY: Clear to auscultation bilaterally. CARDIOVASCULAR: Regular rate and rhythm with no murmurs. ABDOMEN: Protuberant. Abdomen soft, nontender. EXTREMITIES: Bilateral lower extremity edema approximately two-thirds the way up the calf. MUSCULOSKELETAL: Full range of motion, normal gait. NEUROLOGIC: Grossly nonfocal. Alert and oriented x3. PSYCHIATRIC: Appropriate mood and affect. ASSESSMENT AND PLAN: 1. Heart failure exacerbation, currently being followed by inpatient cardiology team. She is currently being diuresed with IV diuretics. The team is tracking her daily I's and O's, she is having improvement in her symptoms. 2. Microcytic anemia with laboratory studies showing iron deficiency. We will check vitamin B12, folate, LDH, haptoglobin, reticulocyte count, EPO level. We will ask for pathology to review the peripheral blood smear. She will need to have iron supplementation. This can be arranged in the outpatient setting. Will ask for consultation by gastroenterology team. MD JOYCE Shukla/CEFERINO , 04:03 PM , 04:33 PM TONI
--- NOTE | 2018-04-15 16:38 | PD.CONS ---
HPI History of Present Illness This is a 67 year old F with PMH significant for CHF,pulmonary HTN, HTN, and hyperlipidemia who presented to the ER on 04/11 with complaints of lower extremity and abdominal swelling. Of note, pt is on Milrinone infusions every other day, administered by home health care nurse through her PICC. Our service has been consulted to evaluate patient for anemia. Pt states she had a history of anemia, multiple years ago and received blood transfusions and was on iron supplements at that time but has had no issues for a long time. She denies any GI symptoms including acid reflux, heartburn, nausea, vomiting, abdominal pain, blood in stool, constipation, diarrhea. States she had an EGD and colonoscopy a year ago at [facility] and both exams were normal. Denies ETOH, smoking, NSAIDs. (Terri Mcgovern) PFSH Past Medical History CHF (EF of 20-25% on 10/21/16), HTN and hyperlipidemia Past Surgical History AICD placement Patient reports previous cardiac procedures although she cannot provide details. States she was treated at [facility]. EGD Colonoscopy (Terri Mcgovern) Coded Allergies: No Known Allergies (Verified Allergy, Unknown, 01/17/18) Family History No family history of CAD or DM Social History Remote history of smoking. Drinks approximately 2 beers per day (pt denied ETOH ). Denies illicit drugs. (Terri Mcgovern) Review of Systems Gastrointestinal: DENIES: Abdominal pain, Black stools, Bloody stools, Constipation, Diarrhea, Nausea, Vomiting, Difficulty Swallowing, Anorexia, Swelling of Abdomen, Heartburn, Hematemesis (Terri Mcgovern) GI Exam Vitals I&O Vital Signs Date Time Temp Pulse Resp B/P (MAP) Pulse Ox O2 Delivery O2 Flow Rate FiO2 04/15/18 16:00 98.1 74 18 112/58 (76) 98 04/15/18 12:01 79 04/15/18 12:00 98.1 73 18 93/50 (64) 100 04/15/18 08:00 Room Air 04/15/18 08:00 98.3 72 18 103/55 (71) 97 04/15/18 07:44 72 04/15/18 04:00 97.9 75 17 97/54 (68) 97 04/15/18 00:00 69 04/15/18 00:00 Room Air 04/14/18 20:00 Room Air 04/14/18 20:00 77 04/14/18 20:00 97.8 79 18 123/60 (81) 100 I/O 04/14/18 04/14/18 04/14/18 04/15/18 04/15/18 04/15/18 06:59 14:59 22:59 06:59 14:59 22:59 Intake Total 120 ml 800 ml 120 ml Balance 120 ml 800 ml 120 ml Intake Oral 120 ml 800 ml 120 ml # Voids 2 3 5 # Bowel Movements 0 2 0 Imaging Last Impressions Chest X-Ray 04/11/18 0000 Signed Impressions: Service Date/Time: March 20:41 - CONCLUSION: Cardiomegaly. Froilan Jiang MD Abdomen Ultrasound 04/11/18 0000 Signed Impressions: Service Date/Time: March 18:27 - CONCLUSION: Mild ascites. Froilan Jiang MD Laboratory Test 04/15/18 04:28 White Blood Count 3.9 TH/MM3 Red Blood Count 3.81 MIL/MM3 Hemoglobin 7.7 GM/DL Hematocrit 24.3 % Mean Corpuscular Volume 63.7 FL Mean Corpuscular Hemoglobin 20.3 PG Mean Corpuscular Hemoglobin Concent 31.9 % Red Cell Distribution Width 20.3 % Platelet Count 289 TH/MM3 Mean Platelet Volume 8.7 FL CBC Comment AUTO DIFF Differential Total Cells Counted 100 Neutrophils % (Manual) 80 % Lymphocytes % 14 % Monocytes % 6 % Neutrophils # (Manual) 3.1 TH/MM3 Nucleated Red Blood Cells 2 /100 WBC Differential Comment FINAL DIFF MANUAL Platelet Estimate NORMAL Platelet Morphology Comment NORMAL Target Cells 2+ Ovalocytes 1+ Helmet Cells OCC Acanthocytes OCC Blood Urea Nitrogen 37 MG/DL Creatinine 1.34 MG/DL Random Glucose 75 MG/DL Total Protein 7.7 GM/DL Albumin 2.9 GM/DL Calcium Level 8.5 MG/DL Phosphorus Level 3.4 MG/DL Magnesium Level 2.0 MG/DL Alkaline Phosphatase 174 U/L Aspartate Amino Transf (AST/SGOT) 47 U/L Alanine Aminotransferase (ALT/SGPT) 30 U/L Total Bilirubin 1.2 MG/DL Sodium Level 135 MEQ/L Potassium Level 3.2 MEQ/L Chloride Level 95 MEQ/L Carbon Dioxide Level 28.4 MEQ/L Anion Gap 12 MEQ/L Estimat Glomerular Filtration Rate 48 ML/MIN Iron Level 20 MCG/DL Total Iron Binding Capacity 529 MCG/DL Percent Iron Saturation 3.8 % Ferritin 19 NG/ML B-Type Natriuretic Peptide 2977 PG/ML Free Thyroxine 1.96 NG/DL Thyroid Stimulating Hormone 3rd Gen 3.080 uIU/ML Physical Examination HEENT: Normocephalic; atraumatic CHEST: Even/unlabored CARDIAC: Regular rate and rhythm with no murmur gallop or rubs. ABDOMEN: Mildly distended, soft, nontender, bowel sounds active EXTREMITIES: BLE edema SKIN: Normal; no rash; no jaundice. SENIOR STAFF CONSULTANT: Alert and oriented times three. (Terri Mcgovern) Assessment and Plan Plan Assessment: - Anemia- microcytic, hypochromic Reports history of anemia and iron deficiency multiple years ago, was on iron supplements and had blood transfusions at that time States EGD and colonoscopy a year ago at [facility], reports normal exams Denies any GI symptoms - Ascites noted on US- likely secondary to CHF - Elevated LFTs- AST-47 ALT-30 Alk phos-174 T bili-1.2 Pt denies ETOH when I asked however in admission notes pt admitted to two beers a day - CHF- BLE edema, on Milrinone, Metolazone, Amiodarone, Lasix - Pulmonary HTN- on Sildenafil Plan: Would recommend EGD/colonoscopy at some point, currently not stable from cardiology standpoint Hematology following Monitor H/H Further recommendations based on clinical course and results of above Pt has been seen and examined by myself and Dr. Nelson and this note is written on his behalf (Terri Mcgovern) Physician Comments Patient seen and examined Agree with above Continue with current supportive care Monitor labs Patient follow-up with GI post discharge Please reconsult as needed Not much to add at this point we will sign off (Kb Nelson MD) Terri Mcgovern April 15, 2018 16:38 Kb Nelson MD April 15, 2018 22:13
[2018-04-15 22:00] LABS: HEMOGLOBIN A1C 5.9 % (4.3-6.0)
[2018-04-16] VITALS (7 sets, daily range): BP systolic 96–103; BP diastolic 53–65; PULSE 68–76; RESP 16–18; TEMP 97.4–98.4; O2SAT 99–100
[2018-04-16] MEDS: HEPARIN SODIUM - SQ 10,000 UNITS/ML VIAL SQ SCH (00:01)
[2018-04-16 05:27] LABS: HEMOGLOBIN 8.1 GM/DL (11.6-15.3); MEAN CELL VOLUME 63.9 FL (80.0-100.0); MEAN CORPUSCULAR HEMOGLOBIN 19.9 PG (27.0-34.0); MEAN CORPUSCULAR HGB CONC 31.1 % (32.0-36.0); MEAN PLATELET VOLUME 8.7 FL (7.0-11.0); PLATELET COUNT 338 TH/MM3 (150-450); RED BLOOD COUNT 4.06 MIL/MM3 (4.00-5.30); RED CELL DISTRIBUTION WIDTH 20.1 % (11.6-17.2); WHITE BLOOD COUNT 4.1 TH/MM3 (4.0-11.0)
[2018-04-16 05:45] LABS: BICARBONATE 25.9 MEQ/L (21.0-32.0); CALCIUM 8.8 MG/DL (8.5-10.1); CREATININE 1.54 MG/DL (0.50-1.00)
[2018-04-16 05:48] LABS: RETIC # 106.7 MIL/L (20.0-150.0); RETIC % 2.7 % (0.4-3.0)
[2018-04-16 06:11] LABS: FOLATE 16.6 NG/ML (3.1-17.5)
[2018-04-16 07:18] LABS: CORRECTED NUCLEATED RBC 2 /100 WBC (0-0); LYMPHOCYTES 19 % (9-44); MONOCYTES 10 % (0-8); NEUTROPHIL # MANUAL DIFF 2.9 TH/MM3 (1.8-7.7); NUCLEATED RED BLOOD CELL 2 (0-0); POLYS (SEG NEUTROPHILS) 71 % (16-70)
[2018-04-16 07:19] LABS: ACANTHOCYTES 1+ (NORMAL); TARGET CELLS 2+ (NORMAL)
[2018-04-16] MEDS: METOLAZONE 2.5 MG TAB PO SCH (09:00)
[2018-04-16] MEDS: SILDENAFIL CITRATE 20 MG TAB PO SCH ×2 (09:00→10:16)
[2018-04-16] MEDS: SODIUM CHLORIDE 0.9% FLUSH 10 ML FLUSH IV FLUSH SCH (09:00)
[2018-04-16] MEDS: FUROSEMIDE 40 MG/4 ML VIAL IV PUSH SCH (09:00)
[2018-04-16] MEDS ORDERED: BUMETANIDE 1 MG TAB PO SCH (09:45)
--- NOTE | 2018-04-16 09:59 | PD.CARD.PN ---
Subjective Subjective Remarks Patient reports feeling well this AM. Breathing and swelling has significantly improved since admission. She denies any chest pain or dizziness. Has been ambulating to the bathroom without any significant SOB. She continues to have 2+ BLE edema and mild ascites. She is being followed by hematology, Iron infusion was discussed. She is not a good candidate for endoscopy/colonoscopy due to her frailty. (Shadeed,Sammie BUCKNER) Objective Medications Current Medications Medications (Trade) Dose Ordered Sig/Tripp Route Start Time Stop Time Status Last Admin (Cordarone) 200 mg DAILY PO 04/12/18 09:00 04/15/18 08:40 (Aspirin Chew) 81 mg DAILY PO 04/12/18 09:00 04/15/18 08:41 (Lasix Inj) 40 mg BID@ IV PUSH 04/12/18 09:00 04/15/18 18:06 (NS Flush) 2 ml UNSCH PRN IV FLUSH 04/11/18 23:45 (NS Flush) 2 ml BID IV FLUSH 04/12/18 09:00 04/15/18 20:59 (Tylenol) 650 mg Q4H PRN PO 04/11/18 23:45 04/15/18 20:59 (Zofran Odt) 4 mg Q6H PRN PO 04/11/18 23:45 (Narcan Inj) 0.4 mg UNSCH PRN IV PUSH 04/11/18 23:45 (Avelina-Colace) 1 tab BID PO 04/12/18 09:00 04/15/18 20:58 (Milk Of Magnesia Liq) 30 ml Q12H PRN PO 04/11/18 23:45 (Senokot) 17.2 mg Q12H PRN PO 04/11/18 23:45 (Dulcolax Supp) 10 mg DAILY PRN RECTAL 04/11/18 23:45 (Lactulose Liq) 30 ml DAILY PRN PO 04/11/18 23:45 (Heparin Inj) 5,000 units Q12H SQ 04/12/18 13:00 04/15/18 12:42 (Revatio) 10 mg TID PO 04/12/18 09:00 04/15/18 18:06 (Zaroxolyn) 2.5 mg BID PO 04/14/18 21:00 04/15/18 20:58 (KCl) 30 meq DAILY PO 04/15/18 09:30 04/15/18 12:42 Vital Signs / I&O Vital Signs Date Time Temp Pulse Resp B/P (MAP) Pulse Ox O2 Delivery O2 Flow Rate FiO2 04/16/18 08:00 98.4 74 16 96/55 (69) 100 04/16/18 04:00 97.4 69 16 103/65 (78) 100 04/16/18 03:53 74 04/16/18 00:01 68 04/16/18 00:00 97.9 72 18 103/65 (78) 100 04/15/18 20:00 Room Air 04/15/18 20:00 97.9 85 18 117/61 (79) 100 04/15/18 19:51 78 04/15/18 16:00 98.1 74 18 112/58 (76) 98 04/15/18 16:00 Room Air 04/15/18 15:55 72 04/15/18 12:01 79 04/15/18 12:00 98.1 73 18 93/50 (64) 100 04/15/18 12:00 Room Air I/O 04/15/18 04/15/18 04/15/18 04/16/18 04/16/18 04/16/18 07:00 15:00 23:00 07:00 15:00 23:00 Intake Total 120 ml 480 ml 420 ml Balance 120 ml 480 ml 420 ml Intake Oral 120 ml 480 ml 420 ml # Voids 5 3 4 # Bowel Movements 0 0 0 Physical Exam GENERAL: Thin, ill appearing female, in no acute distress SKIN: Warm and dry. HEAD: Atraumatic. Normocephalic. EYES: Pupils equal and round. No scleral icterus. No injection or drainage. ENT: No nasal bleeding or discharge. Mucous membranes pink and moist. NECK: Trachea midline. JVD 2cm CARDIOVASCULAR: Paced. RESPIRATORY: No accessory muscle use. Clear to auscultation. Breath sounds equal bilaterally. GASTROINTESTINAL: Abdomen soft, non-tender, mild ascites Hepatic and splenic margins not palpable. MUSCULOSKELETAL: 2 + BLE edema. NEUROLOGICAL: Awake and alert. No obvious cranial nerve deficits. Motor grossly within normal limits. Five out of 5 muscle strength in the arms and legs. Normal speech. PSYCHIATRIC: Appropriate mood and affect; insight and judgment normal. Laboratory Laboratory Tests Test 04/15/18 15:51 04/16/18 04:20 Blood Smear Pathologist Review White Blood Count 4.1 TH/MM3 Red Blood Count 4.06 MIL/MM3 Hemoglobin 8.1 GM/DL Hematocrit 26.0 % Mean Corpuscular Volume 63.9 FL Mean Corpuscular Hemoglobin 19.9 PG Mean Corpuscular Hemoglobin Concent 31.1 % Red Cell Distribution Width 20.1 % Platelet Count 338 TH/MM3 Mean Platelet Volume 8.7 FL CBC Comment AUTO DIFF Differential Total Cells Counted 100 Neutrophils % (Manual) 71 % Lymphocytes % 19 % Monocytes % 10 % Neutrophils # (Manual) 2.9 TH/MM3 Nucleated Red Blood Cells 2 /100 WBC Differential Comment FINAL DIFF MANUAL Platelet Estimate NORMAL Platelet Morphology Comment NORMAL Target Cells 2+ Acanthocytes 1+ Reticulocyte Count 2.7 % Absolute Reticulocyte Count 106.7 MIL/L Haptoglobin 114 MG/DL Blood Urea Nitrogen 40 MG/DL Creatinine 1.54 MG/DL Random Glucose 87 MG/DL Calcium Level 8.8 MG/DL Lactate Dehydrogenase 224 U/L Sodium Level 130 MEQ/L Potassium Level 3.9 MEQ/L Chloride Level 90 MEQ/L Carbon Dioxide Level 25.9 MEQ/L Anion Gap 14 MEQ/L Estimat Glomerular Filtration Rate 41 ML/MIN Vitamin B12 Level 875 PG/ML Folate 16.6 NG/ML (Sammie Harris) Assessment and Plan Assessment and Plan CHF Ascites Pulmonary HTN Anemia CKD High output heart failure. 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 Breathing, edema and ascites have improved. Creatinine 1.54 this AM. Will decrease metolazone to once a day, and transition from IV lasix to PO Bumex. Continue on Sildenafil and milrinone drip Microcytic anemia. She has been evaluated by Dr.Tabitha [facility]. Iron infusion discussed. Pt. is not a good candidate for upper/lower endoscopy. Will continue to monitor renal function and electrolytes. Patient is stable from a cardiac standpoint. Once discharged she will need to follow up in office in 1-2 weeks. Poor prognosis, pt will continue on milrinone drip and sildenafil Pt was seen and evaluated by Dr. Kilpatrick who completed face to face encounter and physical exam, and participated in care, management and decision making. (Sammie Harris) Assessment and Plan The exam, history, and the medical decision-making described in the above note were completed with the assistance of the mid-level provider. I reviewed and agree with the findings presented. I attest that I had a [id number] encounter with the patient on the same day, and personally performed and documented my assessment and findings in the medical record. Overall doing better, ok to d/c. (Nic Kilpatrick MD) Sammie Harris April 16, 2018 09:59 Nic Kilpatrick MD April 16, 2018 13:59
[2018-04-16] MEDS: AMIODARONE 200 MG TAB PO SCH (10:15)
[2018-04-16] MEDS: DOCUSATE SODIUM 50 MG/SENNA 8.6 MG TAB PO SCH (10:15)
[2018-04-16] MEDS: POTASSIUM CHLORIDE 10 MEQ CONTROLLED RELEASE TAB PO SCH (10:15)
[2018-04-16] MEDS: ASPIRIN 81 MG CHEW TAB PO SCH (10:15)
--- NOTE | 2018-04-16 10:22 | HHI.PR ---
Subjective Remarks in no acute distress. walking in the room with no sob. no chest pain or any other complaints. d/w the RN. Objective Vitals Vital Signs Date Time Temp Pulse Resp B/P (MAP) Pulse Ox O2 Delivery O2 Flow Rate FiO2 04/16/18 08:00 98.4 74 16 96/55 (69) 100 04/16/18 04:00 97.4 69 16 103/65 (78) 100 04/16/18 03:53 74 04/16/18 00:01 68 04/16/18 00:00 97.9 72 18 103/65 (78) 100 04/15/18 20:00 Room Air 04/15/18 20:00 97.9 85 18 117/61 (79) 100 04/15/18 19:51 78 04/15/18 16:00 98.1 74 18 112/58 (76) 98 04/15/18 16:00 Room Air 04/15/18 15:55 72 04/15/18 12:01 79 04/15/18 12:00 98.1 73 18 93/50 (64) 100 04/15/18 12:00 Room Air I/O 04/15/18 04/15/18 04/15/18 04/16/18 04/16/18 04/16/18 07:00 15:00 23:00 07:00 15:00 23:00 Intake Total 120 ml 480 ml 420 ml Balance 120 ml 480 ml 420 ml Intake Oral 120 ml 480 ml 420 ml # Voids 5 3 4 # Bowel Movements 0 0 0 Result Diagram: 04/16/18 0420 04/16/18 0420 Imaging Last Impressions Chest X-Ray 04/11/18 0000 Signed Impressions: Service Date/Time: March 20:41 - CONCLUSION: Cardiomegaly. Froilan Jiang MD Abdomen Ultrasound 04/11/18 0000 Signed Impressions: Service Date/Time: March 18:27 - CONCLUSION: Mild ascites. Froilan Jiang MD Objective Remarks GENERAL: This is a well-nourished, well-developed patient, in no apparent distress. CARDIOVASCULAR: Regular rate and regular rhythm without murmurs, gallops, or rubs. RESPIRATORY: Clear to auscultation. Breath sounds equal bilaterally. No wheezes , rales, or rhonchi. GASTROINTESTINAL: Abdomen soft, non-tender, nondistended. Normal, active bowel sounds MUSCULOSKELETAL: Extremities with mild bilateral pedal edema. NEURO: Alert & Oriented x4 to person, place, time, situation. Moves all ext x4 Procedures None. Medications and IVs Inpatient Medications Acetaminophen (Tylenol) 650 mg Q4H PRN PO TEMP > 100.4, CRUZ Last administered on 04/15/18at 20:59; Start 04/11/18 at 23:45 Amiodarone HCl (Cordarone) 200 mg DAILY PO Last administered on 04/15/18at 08:40 ; Start 04/12/18 at 09:00 Aspirin (Aspirin Chew) 81 mg DAILY PO Last administered on 04/15/18at 08:41; Start 04/12/18 at 09:00 Bisacodyl (Dulcolax Supp) 10 mg DAILY PRN RECTAL SEVERE CONSITIPATION; Start at 23:45 Bumetanide (Bumetanide) 2 mg DAILY PO ; Start 04/16/18 at 09:45; Status UNV Diphenhydramine HCl (Benadryl) 25 mg ONCE ONCE PO Last administered on at 21:26; Start 04/14/18 at 21:15; Stop 04/14/18 at 21:19; Status DC Furosemide (Lasix Inj) 40 mg BID@,18 IV PUSH Last administered on 04/15/18at 18:06; Start 04/12/18 at 09:00; Stop 04/16/18 at 09:50; Status DC Heparin Sodium (Porcine) (Heparin Inj) 5,000 units Q12H SQ Last administered on 04/15/18at 12:42; Start 04/12/18 at 13:00 Lactulose (Lactulose Liq) 30 ml DAILY PRN PO SEVERE CONSITIPATION; Start at 23:45 Magnesium Hydroxide (Milk Of Magnesia Liq) 30 ml Q12H PRN PO Mild constipation ; Start 04/11/18 at 23:45 Metolazone (Zaroxolyn) 2.5 mg DAILY PO ; Start 04/17/18 at 09:00; Status UNV Naloxone HCl (Narcan Inj) 0.4 mg UNSCH PRN IV PUSH SEE LABEL COMMENTS; Start at 23:45 Ondansetron HCl (Zofran Odt) 4 mg Q6H PRN PO NAUSEA OR VOMITING; Start at 23:45 Potassium Chloride (KCl) 30 meq DAILY PO Last administered on 04/15/18at 12:42; Start 04/15/18 at 09:30 Senna/Docusate Sodium (Avelina-Colace) 1 tab BID PO Last administered on at 20:58; Start 04/12/18 at 09:00 Sennosides (Senokot) 17.2 mg Q12H PRN PO Moderate constipation; Start 04/11/18 at 23:45 Sildenafil Citrate (Revatio) 10 mg TID PO Last administered on 04/15/18at 18:06 ; Start 04/12/18 at 09:00 Sodium Chloride (NS Flush) 2 ml BID IV FLUSH Last administered on 04/15/18at 20: 59; Start 04/12/18 at 09:00 A/P Assessment and Plan A/P Acute Systolic CHF Exacerbation: BNP elevated at 2959. CXR reviewed, shows cardiomegaly. Abdominal U/S with mild ascites. -Continue diuresis.will switch to po upon discharge. -Monitor Is&Os and daily weights -Cardiology following. Anemia- H/H now fairly stable. -GI consult appreciated and recommended further w/u as outpatient. -Hematology evaluation appreciated. Pulmonary arterial hypertension: chronic -Continue patient's sildenafil DVT Prophylaxis: Heparin sq Discharge Planning dc home within the next 24 hrs if cleared by cardiology and hematology. f/u; pcp, hematology, GI and cardiology. see med list. d/w the patient and RN. Piter Winters MD April 16, 2018 10:22
[2018-04-16] MEDS ORDERED: K-TA10TA PO (10:27)
[2018-04-16] MEDS ORDERED: BUME1TAB PO (10:27)
--- NOTE | 2018-04-16 10:29 | HHI.DS ---
Discharge Summary Admission Date April 12, 2018 at 16:01 Discharge Date: April 16, 2018 Admitting Diagnosis CHF EXACERBATION (1) Acute exacerbation of congestive heart failure ICD Code: I50.9 - Heart failure, unspecified Diagnosis: Principal Status: Acute Procedures None. Brief History - From Admission 67-year-old female with past medical history significant for CHF (EF of 20-25% on 10/21/16), HTN and hyperlipidemia presents to the emergency department for the evaluation of lower extremity and abdominal edema. The patient reports that this has been going on for approximately the past 3 weeks. She states that she is compliant with all her medications but her edema persisted despite this. She describes her shortness of breath with exertion that is baseline for her. She has a PICC line in place in the right arm for administration of milrinone. The patient denies any chest pain. She denies abdominal pain. No fever/chills. No nausea/vomiting/diarrhea. No lateralizing signs/symptoms. CBC/BMP: 04/16/18 0420 04/16/18 0420 Significant Findings Laboratory Tests Test 04/15/18 04:28 04/15/18 15:51 04/16/18 04:20 White Blood Count 3.9 TH/MM3 (4.0-11.0) Red Blood Count 3.81 MIL/MM3 (4.00-5.30) Hemoglobin 7.7 GM/DL (11.6-15.3) 8.1 GM/DL (11.6-15.3) Hematocrit 24.3 % (35.0-46.0) 26.0 % (35.0-46.0) Mean Corpuscular Volume 63.7 FL (80.0-100.0) 63.9 FL (80.0-100.0) Mean Corpuscular Hemoglobin 20.3 PG (27.0-34.0) 19.9 PG (27.0-34.0) Mean Corpuscular Hemoglobin Concent 31.9 % (32.0-36.0) 31.1 % (32.0-36.0) Red Cell Distribution Width 20.3 % (11.6-17.2) 20.1 % (11.6-17.2) Neutrophils % (Manual) 80 % (16-70) 71 % (16-70) Nucleated Red Blood Cells 2 /100 WBC (0-0) 2 /100 WBC (0-0) Target Cells 2+ (NORMAL) 2+ (NORMAL) Ovalocytes 1+ (NORMAL) Acanthocytes OCC (NORMAL) 1+ (NORMAL) Blood Urea Nitrogen 37 MG/DL (7-18) 40 MG/DL (7-18) Creatinine 1.34 MG/DL (0.50-1.00) 1.54 MG/DL (0.50-1.00) Albumin 2.9 GM/DL (3.4-5.0) Alkaline Phosphatase 174 U/L (45-117) Aspartate Amino Transf (AST/SGOT) 47 U/L (15-37) Total Bilirubin 1.2 MG/DL (0.2-1.0) Sodium Level 135 MEQ/L (136-145) 130 MEQ/L (136-145) Potassium Level 3.2 MEQ/L (3.5-5.1) Chloride Level 95 MEQ/L (98-107) 90 MEQ/L (98-107) Estimat Glomerular Filtration Rate 48 ML/MIN (>89) 41 ML/MIN (>89) Iron Level 20 MCG/DL (50-170) Total Iron Binding Capacity 529 MCG/DL (250-450) Percent Iron Saturation 3.8 % (20-50) B-Type Natriuretic Peptide 2977 PG/ML (0-100) Free Thyroxine 1.96 NG/DL (0.76-1.46) Monocytes % 10 % (0-8) Imaging Last Impressions Chest X-Ray 04/11/18 0000 Signed Impressions: Service Date/Time: March 20:41 - CONCLUSION: Cardiomegaly. Froilan Jiang MD Abdomen Ultrasound 04/11/18 0000 Signed Impressions: Service Date/Time: March 18:27 - CONCLUSION: Mild ascites. Froilan Jiang MD PE at Discharge GENERAL: This is a well-nourished, well-developed patient, in no apparent distress. CARDIOVASCULAR: Regular rate and regular rhythm without murmurs, gallops, or rubs. RESPIRATORY: Clear to auscultation. Breath sounds equal bilaterally. No wheezes , rales, or rhonchi. GASTROINTESTINAL: Abdomen soft, non-tender, nondistended. Normal, active bowel sounds MUSCULOSKELETAL: Extremities with mild bilateral pedal edema. NEURO: Alert & Oriented x4 to person, place, time, situation. Moves all ext x4 Hospital Course Acute Systolic CHF Exacerbation: BNP elevated at 2959. CXR reviewed, shows cardiomegaly. Abdominal U/S with mild ascites. -Continue diuresis.will switch to po upon discharge. -Monitor Is&Os and daily weights -evaluated by Cardiology. Anemia- H/H now fairly stable. -GI consult appreciated and recommended further w/u as outpatient. -Hematology evaluation appreciated; f/u as outpatient. Pulmonary arterial hypertension: chronic -Continue patient's sildenafil DVT Prophylaxis: Heparin sq Pt Condition on Discharge: Good Discharge Disposition: Discharge Home Discharge Time: <= 30 minutes Discharge Instructions DIET: Follow Instructions for: Heart Healthy Diet Activities you can perform: Regular-No Restrictions Piter Winters MD April 16, 2018 10:29
[2018-04-17] MEDS ORDERED: METOLAZONE 2.5 MG TAB PO SCH (09:00)
== END 2018-04-16 13:00 | disposition home or self-care (01) | DRG 292 ==
LOC: NEPE 15:24 → NEDA 22:20 → NEPHCDU 04-12 00:07 → NEPGCP 04-12 00:13 → OBSVTOIN 04-12 16:01 → N04B 04-13 19:19
PROVIDERS: ADMIT Internal Medicine; ATTEND Internal Medicine
DX: I50.23 Acute on chronic systolic (congestive) heart failure (principal); R18.8 Other ascites; R64 Cachexia; I42.9 Cardiomyopathy, unspecified; I27.21 Secondary pulmonary arterial hypertension; I07.1 Rheumatic tricuspid insufficiency; I13.0 Hypertensive heart and chronic kidney disease with heart failure and stage 1 through stage 4 chronic kidney disease, or unspecified chronic kidney disease; I45.2 Bifascicular block; I25.10 Atherosclerotic heart disease of native coronary artery without angina pectoris; D50.9 Iron deficiency anemia, unspecified; I50.83 High output heart failure; N18.9 Chronic kidney disease, unspecified; E78.5 Hyperlipidemia, unspecified; M79.604 Pain in right leg; M79.605 Pain in left leg; M79.89 Other specified soft tissue disorders; R54 Age-related physical debility; Z95.810 Presence of automatic (implantable) cardiac defibrillator; Z87.891 Personal history of nicotine dependence; Z68.20 Body mass index [BMI] 20.0-20.9, adult
CPT/HCPCS: 71045; 76705; 80048; 80053; 81001; 82272; 82550; 82552; 82607; 82668; 82728; 82746; 83010; 83036; 83540; 83550; 83615; 83735; 83880; 84100; 84439; 84443; 84484; 85007; 85025; 85027; 85044; 85610; 85730; 93005; 96374; G0378; G8987-GP; G8988-GP; J1644; J1940